=== PATIENT | female | born 1945 | race African-American/Black ===

== ENCOUNTER 2020-06-06 12:47 | Inpatient (IN) | payer OTHER ==
--- OUTSIDE RECORDS SUMMARY | 2020-06-06 12:50 | XMS REPORT | Clinical Summary ---
:1945 Author Organization [facility] Address [address] [place] [address] Care Team Providers Name Role Phone Jona Dooley MD Primary Care Provider Allergies No Known Active Allergies Medications Medication Sig Dispensed Refills Start Date End Date Status clopidogrel (PLAVIX) 75 Take 75 mg by 0 Active mg tablet mouth daily. atorvastatin (LIPITOR) Take 80 mg by 0 Active 80 MG tablet mouth daily. amLODIPine (NORVASC) 5 Take 5 mg by 0 Active mg tablet mouth daily. atenolol (TENORMIN) 25 Take 25 mg by 0 Active MG tablet mouth nightly. ibandronate (BONIVA) 150 Take 150 mg by 0 Active mg tablet mouth every 30 (thirty) days. Take in AM with glass of water prior to food, don't lie down for 30 minutes. aspirin (ECOTRIN) 81 MG Take 81 mg by 0 Active enteric coated tablet mouth daily. Active Problems Problem Noted Date Transient cerebral ischemia 06/05/2017 Carotid bruit 06/05/2017 PAD (peripheral artery disease) 06/05/2017 Atherosclerosis 06/05/2017 Surgical History Surgery Date Site/Laterality Comments CAROTID STENT CARDIAC CATHETERIZATION 07/18/2017 N/A Procedur e: Aortagram abdomen w run off; Surg xochitl: Selvin Nichols MD; Lo cation: [facility] Termite Control Service Representative Invasiv e Location; Service: Cardiov ascular; Laterality: N/A; SPECIAL OFFICER bilateral iliac stents Medical devices from this surgery are in t Implants section. CARDIAC CATHETERIZATION 07/18/2017 N/A Procedur e: SPECIAL OFFICER iliac artery; Surgeon: Selvin Nichols MD; Location: [facility] Termite Control Service Representative Invasive Locatio n; Service: Cardiovascular; Laterality: N/A; Medical devices from this surgery are in t he Implants section. CARDIAC CATHETERIZATION 07/18/2017 N/A Procedur e: Cv invasive peripheral vascu lar procedure; Surg xochitl: Selvin Nichols MD; Lo cation: [facility] Termite Control Service Representative Invasiv e Location; Service: Cardiov ascular; Laterality: N/A; Medical devices from this surgery are in t he Implants section. CARDIAC CATHETERIZATION 08/22/2017 N/A Procedur e: Cv Transcatheter Stent Placement W Angio Same Initial Vessel; Surgeon: Selvin Nichols MD; Location: [facility] Ca th Lab Invasive Locatio n; Service: Cardiovascular; Laterality: N/A; Left Renal Artery SPECIAL OFFICER and Stent Medical devices from this surgery are in t he Implants section. CV INVASIVE PERIPHERAL VASCULAR 08/22/2017 N/A Procedure: Left SFA, SPECIAL OFFICER; PROCEDURE Surgeon: Selvin Nichols MD; Location: [facility] C ath Lab Invasive Locatio n; Service: Cardiovascular; Laterality: N/A; Medical devices from this surgery are in t he Implants section. CARDIAC CATHETERIZATION 08/22/2017 N/A Procedur e: Cv arteriogram abdominal aorta; Surgeon: Selvin Nichols MD; Location: [facility] Ca Lab Invasive Locatio n; Service: Cardiovascular; Laterality: N/A; Medical devices from this surgery are in t he Implants section. Medical History Medical History Date Comments CVA (cerebral vascular accident) (HCC) Carotid artery occlusion Hypertension Family History Medical History Relation Name Comments Diabetes Mother Hypertension Mother Lupus Sister Relation Name Status Comments Father Mother Sister Social History Tobacco Use Types Packs/Day Years Used Date Current Every Day Smoker Cigarettes 1 Sta rted: 08/21/2017 Smokeless Tobacco: Never Used Alcohol Use Drinks/Week oz/Week Comments No Sex Assigned at Date Recorded Not on file Obstetrics History Grav Para Term Pre Abrt (TAB) (SAB) (Ect) Mult Lvng Comments 2 2 Date Outcome GA Total Labor/2nd/3rd Weight Sex Delivery Anes PTL Elda A 1 A5 Name Clin Labor Para Para Last Filed Vital Signs Not on file Plan of Treatment Health Maintenance Due Date Last Done Comments COVID-19 VACCINE (1 of 2) 1962 HEPATITIS C SCREENING 1964 BREAST CANCER SCREENING 1996 COLONOSCOPY SCREENING 1996 SHINGLES VACCINES (#1) 1996 65+ PNEUMOCOCCAL VACCINE (1 of 1 - PPSV23) 2011 INFLUENZA VACCINE 11/29/2019 Implants Implanted Type Area Mold Unloader Device Shelf Model / Identifier Expiration Serial / Date Lot Catheter Flight Kitchen Manager [place] 5fr 75cm 6x40mm 0.035in H-Pres - [id number] Cardiovascular N/A: [employer] PERIPHERAL [id number] / Implanted: 07/18/2017 at [facility] (Quantity not on file) Imp lants N/A INTERVENTION / VASCULAR HEATHER Catheter Flight Kitchen Manager [place] 5fr 75cm 6x40mm 0.035in H-Pres - [id number] Cardiovascular N/A: [employer] PERIPHERAL [id number] / Implanted: 07/18/2017 at [facility] (Quantity not on file) Imp lants N/A INTERVENTION / VASCULAR HEATHER Stent System 5.0 X 15mm Resolute [employer] Coronary - [id number] Coronary Stents N/A: [facility] [facility] - 03/05/2019 [id number] / Implanted: Qty: 1 on 08/22/2017 by Selvin Nichols MD at [facility] HO SPITAL N/A [facility]ASCULAR / [facility] Bili Plmz Gen Bln-Xpndbl Unmntd 39x8mm - [id number] Peripheral or N/A: CORDIS ZORA 10/28/2019 [id number] / Implanted: 07/18/2017 at [facility] (Quantity not on file) Toño iary Stents N/A ENDOVASCULAR / [id number] Stent Trnpt Bili Plmz Gen Bln-Xpndbl Unmntd 39x8mm - [id number] Peripheral or N/A: CORDIS ZORA 08/28/2019 [id number] / Implanted: 07/18/2017 at [facility] (Quantity not on file) Toño iary Stents N/A ENDOVASCULAR / [id number] System Clsr Sut Meditd 6fr Perclose Proglide - [id number] Surgic al N/A: TAMEZ VASCULAR 05/30/2019 [id number] / Implanted: 08/22/2017 at [facility] (Quantity not on file) Imp lants; N/A DEVICES / Expanders; [id number] Extenders; Surgical Wires Results Not on fileafter 06/06/2019 Insurance Payer Benefit Plan / Subscriber ID Effective Dates Phone Addre ss Type Group MEDICARE MEDICARE PART A [id number] 2011-Present [place], [place] Medicare AND B COLONIAL COLONIAL EVELYN [id number] 2012-Present Commercial Advance Directives For more information, please contact: [phone] Type Date Recorded 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
--- NOTE | 2020-06-06 13:57 | RAD REPORT ---
EXAM DESCRIPTION: RAD - Chest Single View - 06/06/2020 1:48 pm CLINICAL HISTORY: DYSPNEA Chest pain. COMPARISON: Chest Pa And Lat (2 Views) dated 05/16/2017; CHEST PA AND LAT 2 VIEW dated 08/11/2010; [facility] SINGLE VIEW dated 11/29/2008; CHEST SINGLE VIEW dated 08/28/2008 FINDINGS: Portable technique limits examination quality. Moderate pulmonary edema is seen with bilateral pleural effusions. The heart is moderately enlarged i n size. No displaced fractures.Aortic atherosclerosis. IMPRESSION: Moderate CHF versus volume overload pattern.
[2020-06-06] MEDS ORDERED: FUROSEMIDE 40 MG/4 ML VIAL ONE ×2 (14:12→15:31)
[2020-06-06 14:31] LABS: Absolute Lymphocytes (CBC) 0.7 K/uL (0.7-4.9); Basophils % 0.6 % (0-1.3); Hematocrit 51.9 % (36.0-45.0); Lymphocytes % 14.5 % (15.3-44.8); MPV 10.1 fL (7.6-11.3); RBC Red Blood Cell Count 5.24 M/uL (3.86-4.86)
[2020-06-06 14:32] LABS: Protime INR 1.18
[2020-06-06 14:50] LABS: Albumin 3.3 g/dL (3.4-5.0); Bilirubin Direct 0.3 mg/dL (0-0.2); Bilirubin Total 0.9 mg/dL (0.2-1.0); Magnesium 2.3 mg/dL (1.8-2.4); Potassium 4.6 mmol/L (3.5-5.1); Protein, Total 7.8 g/dL (6.4-8.2); Troponin (Emerg Dept Use Only) 0.02 ng/mL (0.0-0.045)
--- NOTE | 2020-06-06 15:08 | EDPHYS ---
Physician Documentation [facility] Name: Angela Ortez Age: 75 yrs Sex: Female : 1945 Arrival Date: 06/06/2020 Time: 12:50 Bed 4 Private MD: Jesse Dooley C ED Physician Yaw Palmer HPI: 06/06 13:15 This 75 yrs old Black Female presents to ER via Wheelchair with complaints of Leg rn Swelling, Shortness Of Breath. 13:15 The patient has shortness of breath at rest, with light activity. Onset: The rn symptoms/episode began/occurred 2 week(s) ago. Duration: The symptoms are continuous. The patient's shortness of breath is aggravated by supine position, talking, walking. Severity of symptoms: At their worst the symptoms were moderate in the emergency department the symptoms are unchanged. The patient has not experienced similar symptoms in the past. The patient has not recently seen a physician. Reports 1-2 weeks of increased lower ext swelling and sob. SOB worse with minimal exertion and when supine. no fever. + mild cough with white sputum. No known liver or kidney problems. + hx of CAD with 2 stents, no known CHF.. Historical: - Allergies: 13:04 No Known Allergies; iw - Home Meds: 13:04 atorvastatin 80 mg oral tab 1 tab once daily [Active]; atenolol 25 mg Oral tab 1 tab iw once daily [Active]; amlodipine 5 mg tab 1 tab once daily [Active]; clopidogrel 75 mg oral tab 1 tab once daily [Active]; - PMHx: 13:04 CVA; iw - PSHx: 13:04 Heart stents; iw - Immunization history:: Adult Immunizations up to date. - Family history:: not pertinent. - Social history:: Smoking status: unknown. - Hospitalizations: : No recent hospitalization is reported. ROS: 13:15 Constitutional: Negative for fever, chills, and weight loss, Eyes: Negative for injury, rn pain, redness, and discharge, Neck: Negative for injury, pain, and swelling, Cardiovascular: Negative for chest pain, palpitations Respiratory: Negative for wheezing, and pleuritic chest pain, Abdomen/GI: Negative for abdominal pain, nausea, vomiting, diarrhea, and constipation, Back: Negative for injury and pain, MS/Extremity: Negative for injury and deformity, Skin: Negative for injury, rash, and discoloration, Neuro: Negative for headache, numbness, tingling, and seizure. Exam: 13:15 Constitutional: Thin female, frail Head/Face: Normocephalic, atraumatic. ornamenter hand: Regular rate and rhythm. No pulse deficits. Respiratory: + mild tachypnea Abdomen/GI: soft, non-tender, no fluid wave Skin: Warm, dry MS/ Extremity: Pulses equal, no cyanosis. Neurovascular intact. Full, normal range of motion. Equal circumference. 3+ pitting edema bilateral lower ext past knees. Neuro: Awake and alert, GCS 15 Vital Signs: 12:57 BP 135 / 75; Pulse 86; Resp 16; Temp 98.3; iw 13:57 BP 115 / 85; Pulse 102; Resp 17 S; Pulse Ox 95% on R/A; jd3 15:17 BP 132 / 62; Pulse 100; Resp 20 S; Pulse Ox 96% on 2 lpm NC; jd3 17:00 BP 133 / 69; Pulse 96; Resp 23; jl7 MDM: 13:05 Patient medically screened. rn 15:05 Differential diagnosis: CHF exacerbation, Myocardial Infarction Pneumothorax pulmonary rn edema. Data reviewed: vital signs, nurses notes, lab test result(s), EKG, radiologic studies, plain films, and as a result, I will admit patient. Test interpretation: by ED physician or midlevel provider: plain radiologic studies, CXR shows moderate pulmonary edema. Counseling: I had a detailed discussion with the patient and/or guardian regarding: the historical points, exam findings, and any diagnostic results supporting the discharge/admit diagnosis, lab results, radiology results, the need for further work-up and treatment in the hospital. Response to treatment: the patient's symptoms have mildly improved after treatment, and as a result, I will admit patient. Admission orders: after a detailed discussion of the patient's condition and case, the admit orders are written by me. ED course: Consulted with Dr. Dooley, will admit for CHF. . 06/06 13:14 Order name: Basic Metabolic Panel rn 06/06 13:14 Order name: CBC with Diff rn 06/06 13:14 Order name: LFT's; Complete Time: 15:02 rn 06/06 13:14 Order name: Magnesium; Complete Time: 15:02 rn 06/06 13:14 Order name: NT PRO-BNP; Complete Time: 15:02 rn 06/06 13:14 Order name: PT-INR; Complete Time: 15:02 rn 06/06 13:14 Order name: Troponin (emerg Dept Use Only); Complete Time: 15:02 rn 06/06 13:14 Order name: XRAY Chest (1 view); Complete Time: 14:06 rn 06/06 13:14 Order name: Basic Metabolic Panel; Complete Time: 15:02 EDMS 06/06 13:14 Order name: CBC with Automated Diff EDMS 06/06 13:19 Order name: COVID-19 : Document "Date of Symptom Onset" if Symptomatic. rn 06/06 15:27 Order name: SARS-COV-2 RT PCR EDMS 06/06 13:14 Order name: EKG; Complete Time: 13:14 rn 06/06 13:14 Order name: Cardiac monitoring; Complete Time: 13:17 rn 06/06 13:14 Order name: EKG - Nurse/Tech; Complete Time: 13:17 rn 06/06 13:14 Order name: IV Saline Lock; Complete Time: 14:05 rn 06/06 13:14 Order name: Labs collected and sent; Complete Time: 14:05 rn 06/06 13:14 Order name: O2 Per Protocol; Complete Time: 13:17 rn 06/06 13:14 Order name: O2 Sat Monitoring; Complete Time: 13:17 rn 06/06 13:51 Order name: Garcia; Complete Time: 14:38 rn Administered Medications: 14:38 Drug: Lasix 40 mg Route: IVP; Site: right forearm; jd3 17:08 Follow up: Response: No adverse reaction iw 15:15 Drug: Lasix 40 mg Route: IVP; Site: right forearm; iw 17:09 Follow up: Response: No adverse reaction iw Disposition: 06/06/20 15:07 Hospitalization ordered by Jesse Dooley for Inpatient Admission. Preliminary diagnosis are Pulmonary edema, Congestive Heart Failure, Dyspnea, unspecified. - Bed requested for Telemetry/MedSurg (Inpatient). - Status is Inpatient Admission. jl7 - Condition is Stable. - Problem is new. - Symptoms have improved. Signatures: Dispatcher [employer] EDAdeline Auguste RN RN iw Nieto, Roman, MD MD rn Martinez, Eric em1 Carolina Mitchell RN RN jl7 Hernando Conde RN RN jd3 Corrections: (The following items were deleted from the chart) 14:17 13:19 CORONAVIRUS ordered. EDMS EDMS 16:28 15:07 Hospitalization Ordered by A Soumya HALL for Inpatient Admission. Preliminary em1 diagnosis is Pulmonary edema; Congestive Heart Failure; Dyspnea, unspecified. Bed requested for Telemetry/MedSurg (Inpatient). Status is Inpatient Admission. Condition is Stable. Problem is new. Symptoms have improved. rn 17:22 16:28 06/06/2020 15:07 Hospitalization Ordered by A Soumya HALL for Inpatient Admission. jl7 Preliminary diagnosis is Pulmonary edema; Congestive Heart Failure; Dyspnea, unspecified. Bed requested for Telemetry/MedSurg (Inpatient). Status is Inpatient Admission. Condition is Stable. Problem is new. Symptoms have improved. em1
--- NOTE | 2020-06-06 15:08 | ER ---
Nurse's Notes [facility] Name: Angela Ortez Age: 75 yrs Sex: Female : 1945 Arrival Date: 06/06/2020 Time: 12:50 Bed 4 Private MD: Jesse Dooley C Diagnosis: Pulmonary edema;Congestive Heart Failure;Dyspnea, unspecified Presentation: 06/06 12:57 Chief complaint: Spouse and/or significant other states: kun leg swelling X 10 days, is iw having trouble breathing when sleeping/lying flat, no hx of CHF. Coronavirus screen: At this time, the client does not indicate any symptoms associated with coronavirus-19. Ebola Screen: Patient negative for fever greater than or equal to 101.5 degrees Fahrenheit, and additional compatible Ebola Virus Disease symptoms Patient denies exposure to infectious person. Patient denies travel to an Ebola-affected area in the 21 days before illness onset. No symptoms or risks identified at this time. Initial Sepsis Screen: Does the patient meet any 2 criteria? No. Patient's initial sepsis screen is negative. Does the patient have a suspected source of infection? No. Patient's initial sepsis screen is negative. Risk Assessment: Do you want to hurt yourself or someone else? Patient reports no desire to harm self or others. Onset of symptoms was May 28, 2020. 12:57 Method Of Arrival: Wheelchair iw 12:57 Acuity: JILLIAN 3 iw Triage Assessment: 14:00 Respiratory: Onset: The symptoms/episode began/occurred gradually, the patient has mild jd3 shortness of breath. Historical: - Allergies: 13:04 No Known Allergies; iw - Home Meds: 13:04 atorvastatin 80 mg oral tab 1 tab once daily [Active]; atenolol 25 mg Oral tab 1 tab iw once daily [Active]; amlodipine 5 mg tab 1 tab once daily [Active]; clopidogrel 75 mg oral tab 1 tab once daily [Active]; - PMHx: 13:04 CVA; iw - PSHx: 13:04 Heart stents; iw - Immunization history:: Adult Immunizations up to date. - Family history:: not pertinent. - Social history:: Smoking status: unknown. - Hospitalizations: : No recent hospitalization is reported. Screenin:00 Abuse screen: Denies threats or abuse. Nutritional screening: No deficits noted. jd3 Tuberculosis screening: No symptoms or risk factors identified. Fall Risk Ambulatory Aid- Crutches/Cane/Walker (15 pts). Gait- Weak (10 pts.). Mental Status- Oriented to own ability (0 pts). Total Brady Fall Scale indicates Low Risk Score (25-44 pts). Fall prevention measures have been instituted. Side Rails Up X 2 Placed close to Nursing Station Frequent Obs/Assesments occuring Family Present and informed to notify staff if they need to leave bedside. Assessment: 13:15 General: Appears in no apparent distress. uncomfortable, Behavior is calm, cooperative, jd3 appropriate for age. Pain: Complains of pain in chest Quality of pain is described as aching. Neuro: Level of Consciousness is awake, alert, obeys commands, Oriented to person, place, time, situation. Cardiovascular: Heart tones S1 S2 present Capillary refill < 3 seconds Patient's skin is warm and dry. Rhythm is sinus tachycardia. Respiratory: Reports shortness of breath at rest cough that is persistent Airway is patent Respiratory effort is even, unlabored, Respiratory pattern is regular, symmetrical, Breath sounds are diminished bilaterally. GI: No signs and/or symptoms were reported involving the gastrointestinal system. : No signs and/or symptoms were reported regarding the genitourinary system. EENT: No signs and/or symptoms were reported regarding the EENT system. Derm: Skin is intact, Skin is dry, Skin is normal, Skin temperature is warm. Musculoskeletal: Circulation, motion, and sensation intact. Range of motion: intact in all extremities, Swelling present in right leg and left leg. 14:00 Reassessment: No changes from previously documented assessment. Patient and/or family jd3 updated on plan of care and expected duration. Pain level reassessed. Patient is alert, oriented x 3, equal unlabored respirations, skin warm/dry/pink. 15:18 Reassessment: Patient and/or family updated on plan of care and expected duration. Pain jd3 level reassessed. Patient is alert, oriented x 3, equal unlabored respirations, skin warm/dry/pink. 16:20 Reassessment: Patient appears in no apparent distress at this time. No changes from jl7 previously documented assessment. Patient and/or family updated on plan of care and expected duration. Pain level reassessed. Patient is alert, oriented x 3, equal unlabored respirations, skin warm/dry/pink. Vital Signs: 12:57 BP 135 / 75; Pulse 86; Resp 16; Temp 98.3; iw 13:57 BP 115 / 85; Pulse 102; Resp 17 S; Pulse Ox 95% on R/A; jd3 15:17 BP 132 / 62; Pulse 100; Resp 20 S; Pulse Ox 96% on 2 lpm NC; jd3 17:00 BP 133 / 69; Pulse 96; Resp 23; jl7 ED Course: 12:50 Patient arrived in ED. as 12:55 Jesse Dooley MD is Private Physician. as 12:59 Triage completed. iw 13:05 Yaw Palmer MD is Attending Physician. rn 13:16 Hernando Conde RN is Primary Nurse. jd3 13:49 XRAY Chest (1 view) In Process Unspecified. EDMS 13:57 Arm band placed on. jd3 14:01 Patient has correct armband on for positive identification. Placed in gown. Bed in low jd3 position. Call light in reach. Side rails up X2. Adult w/ patient. cash management coordinator on. Pulse ox on. NIBP on. 14:20 Initial lab(s) drawn, by me, sent to lab. Inserted saline lock: 20 gauge in right jl7 forearm, using aseptic technique. Blood collected. 14:30 Garcia cath inserted, using sterile technique, 14 Fr., by me, balloon inflated, to jl7 gravity drainage, urine specimen collected. returned cloudy urine. Patient tolerated poorly. 15:07 Jesse Dooley MD is Hospitalizing Provider. rn 16:39 No provider procedures requiring assistance completed. Patient admitted, IV remains in iw place. Administered Medications: 14:38 Drug: Lasix 40 mg Route: IVP; Site: right forearm; jd3 17:08 Follow up: Response: No adverse reaction iw 15:15 Drug: Lasix 40 mg Route: IVP; Site: right forearm; iw 17:09 Follow up: Response: No adverse reaction iw Outcome: 15:07 Decision to Hospitalize by Provider. rn 16:39 Admitted to Med/surg Report called to FERMIN Willams iw 16:39 Condition: good 16:39 Discharge instructions given to patient, family, Instructed on the need for admit, Demonstrated understanding of instructions. 17:22 Patient left the ED. jl7 Signatures: Dispatcher [employer] Alison Cheng Irene, RN RN iw Yaw Palmer MD MD rn Leal, Jahala, RN RN jl7 Hernando Conde RN RN jd3 Corrections: (The following items were deleted from the chart) 13:04 12:57 BP 135 / 75; Pulse 86bpm; Resp 16bpm; Pulse Ox 98% RA; Temp 98.3F; iw iw 14:00 13:15 Respiratory: Airway is patent Respiratory effort is even, unlabored, Respiratory jd3 pattern is regular, symmetrical, Breath sounds are diminished bilaterally. jd3 14:00 13:15 Reassessment: No changes from previously documented assessment. Patient and/or jd3 family updated on plan of care and expected duration. Pain level reassessed. Patient is alert, oriented x 3, equal unlabored respirations, skin warm/dry/pink. jd3
[2020-06-06 18:05] VITALS: BMI 22.4
[2020-06-06] MEDS ORDERED: ONDANSETRON 4 MG/2 ML VIAL IV PRN (18:09)
[2020-06-06] MEDS ORDERED: ALBUTEROL 2.5 MG/3 ML NEB SOL NEB PRN (18:09)
[2020-06-06] MEDS ORDERED: IPRATROPIUM BROM 0.5MG/2.5ML NEB PRN (18:09)
[2020-06-06] MEDS: FUROSEMIDE 40 MG/4 ML VIAL IV SCH (19:06)
[2020-06-06 19:40] LABS: Anisocytosis 1+; Blood Morphology Comment NOTED (NOT SEEN); Platelet Estimate ADEQ; Polychromasia SLIGHT
[2020-06-06 22:23] LABS: Arterial Blood Carboxyhemoglob 3.8 % (0-1.5); Blood Gas Oxyhemoglobin 69.4 % (94-97); Blood O2 Saturation 72.8 % (92-98.5)
[2020-06-07 05:52] LABS: Absolute Lymphocytes (CBC) 0.7 K/uL (0.7-4.9); Basophils % 0.4 % (0-1.3); Hematocrit 49.6 % (36.0-45.0); Lymphocytes % 14.8 % (15.3-44.8); MPV 9.6 fL (7.6-11.3); RBC Red Blood Cell Count 4.97 M/uL (3.86-4.86)
[2020-06-07 06:11] LABS: Potassium 4.7 mmol/L (3.5-5.1)
[2020-06-07] MEDS ORDERED: INFLUENZA VACCINE (for 3y+) 0.5 ML DOSE IMVAC ONE (09:00)
[2020-06-07] MEDS ORDERED: PNEUMOCOCCAL VACCINE 0.5 ML IMVAC ONE (09:00)
[2020-06-07] MEDS: ASPIRIN EC 81 MG TAB PO SCH (11:30)
[2020-06-07] MEDS: CLOPIDOGREL 75 MG TABLET PO SCH (11:30)
[2020-06-07] MEDS: FUROSEMIDE 40 MG/4 ML VIAL IV SCH ×2 (11:30→16:03)
[2020-06-07] MEDS: AMLODIPINE 5 MG TAB PO SCH (11:30)
[2020-06-07] MEDS: ENOXAPARIN 40 MG/0.4 ML SQ SCH (11:31)
--- NOTE | 2020-06-07 11:39 | CON ---
Date of Consultation: 06/07/2020 Reason For Consultation: CHF. History Of Present Illness: Ms. Ortez is a 75-year-old woman with history of CVA, CAD, PCI, hypert ension, dyslipidemia, who came in with shortness of breath. She is on CPAP and BiPAP with a pO2 of 4 7, pCO2 of 87, pH of 7.25 respiratory acidosis, CO2 retention. Chest x-ray showed moderate congestive heart failure. BNP was 8332. Echocardiogram is pending. She is on appropriate therapy, somnolent and lethargic, but she is alert and oriented x3, no acute distress other than shortness of breath. Past Medical History: As stated above. Allergies: NONE. Review of Systems: Negative. Social History: Negative. Family History: Noncontributory. Medications: At home include aspirin, Plavix, Lipitor, atenolol, Norvasc. Physical Examination: Vital Signs: Stable, afebrile. HEENT: Negative. Neck: Supple with no bruit. Chest: Reveals rales and expiratory wheezing bilaterally at the bases. Cardiac: Revealed tachycardia with sinus tach. No murmurs, gallops, or rubs. Abdomen: Benign. Extremities: Revealed no clubbing, cyanosis. 1+ edema. Diagnostic Data: As stated earlier. Impression And Plan: 1. combination of chronic obstructive pulmonary disease exacerbation as well as congestive heart failure exacerbation . Echocardiogram is pending CO2 retention. She is on BiPAP and CPAP. We will see what the echo shows before making further therapy. She is on appropr iate medical therapy for now. 2.Coronary artery disease, status post percutaneous coronary intervention. She is on aspirin and Pl avix and beta-valentin. We may have to discontinue her beta-valentin later as her lungs appeared to be an issue. She also had hypertension and dyslipidemia, both of them are controlled fairly well on No rvasc and Lipitor. I will continue to follow along with Dr. Dooley. TOBIN/LOLA Voice ID: [id number] Report ID: [id number]
--- NOTE | 2020-06-07 11:48 | P.CNS ---
Date of Consult: 06/07/20 Reason for Consult: Respiratory failure Chief Complaint: Respiratory failure History of Present Illness: Patient is 75 years of age presented to the emergency room with lower extremity edema shortness of breath symptoms began about 2 weeks became progressively worse and appeared in the emergency room was found to be hypoxic hypercapnic history of coronary artery disease with stents no prior history of CHF is currently on a BiPAP appears to have bilateral pleural effusion possible pulmonary edema Allergies No Known Allergies Allergy (Unverified 06/06/20 17:25) Home Medications: Amlodipine [Norvasc] 5 mg PO DAILY 06/06/20 Aspirin [Aspirin EC 81 MG] 81 mg PO DAILY 06/06/20 Atenolol [Tenormin] 25 mg PO BEDTIME 06/06/20 Atorvastatin Calcium [Lipitor] 80 mg PO BEDTIME 06/06/20 Clopidogrel Bisulfate [Plavix] 75 mg PO DAILY 06/06/20 - Past Medical/Surgical History Diabetic: No -: stroke -: cardiac stents -: cardiac stents - Social History Smoking Status: Unknown if ever smoked Alcohol use: No CD- Drugs: No Caffeine use: Yes Place of Residence: Home Review of Systems is unable to be obtained Physical Examination Temp Pulse Resp BP Pulse Ox 97.0 F 80 14 108/58 L 100 06/07/20 08:00 06/07/20 11:30 06/07/20 08:00 06/07/20 11:30 06/07/20 08:00 General: Unresponsive Respiratory: Clear to auscultation bilaterally, Crackles/rales, Expiratory wheezes Cardiovascular: Normal S1 S2, Edema Gastrointestinal: Soft and benign Laboratory Data (last 24 hrs) 06/06/20 14:07: PT 13.6 H, INR 1.18 06/06/20 14:07: WBC 5.10, Hgb 16.4 H, Hct 51.9 H, Plt Count 157 06/06/20 14:07: Sodium 144, Potassium 4.6, BUN 27 H, Creatinine 1.05, Glucose 113 H, Magnesium 2.3, Total Bilirubin 0.9, AST 19, ALT 24, Alkaline Phosphatase 94 - Problems (1) Respiratory failure Current Visit: Yes Status: Acute Plan: Patient is 75 years of age with a history of coronary artery disease stents placement admitted with hypoxemia hypercapnia respiratory failure BNP is over 10,000 labs reviewed CBC unremarkable chest x-ray shows cardiomegaly 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
[2020-06-07] MEDS ORDERED: IPRATROPIUM BROM 0.5MG/2.5ML NEB PRN (15:00)
[2020-06-07] MEDS ORDERED: ALBUTEROL 2.5 MG/3 ML NEB SOL NEB PRN (15:00)
[2020-06-07] MEDS: ATORVASTATIN 80 MG TAB PO SCH (21:46)
[2020-06-07] MEDS: ENSURE ENLIVE 237 ML CAN PO SCH (21:47)
[2020-06-07] MEDS: atenoloL 25 MG TAB PO SCH (23:11)
[2020-06-08 08:04] LABS: Potassium 4.9 mmol/L (3.5-5.1)
--- NOTE | 2020-06-08 08:52 | ECHO ---
HEIGHT: 5 ft 7 in WEIGHT: 148 lb 12.8 oz DATE OF STUDY: 06/07/[address]: Yaw Palmer JR, MD 2-DIMENSIONAL: YES M.MODE: YES DOPPLER: YES COLOR FLOW: YES TDS: YES PORTABLE: DEFINITY: BUBBLE STUDY: DIAGNOSIS: CARDIAC FUNCTION CARDIAC HISTORY: CATHERIZATION: SURGERY: PROSTHETIC VALVE: PACEMAKER: MEASUREMENTS (cm) DIASTOLIC (NORMALS) SYSTOLIC (NORMALS) IVSd 1.0 (0.6-1.2) LA Diam 3.4 (1.9-4.0) LVEF 57% LVIDd 3.1 (3.5-5.7) LVIDs 2.2 (2.0-3.5) %FS 29% LVPWd 0.9 (0.6-1.2) Ao Diam 2.6 (2.0-3.7) 2 DIMENSIONAL ASSESSMENT: RIGHT ATRIUM: SEVERELY DILATED LEFT ATRIUM: NORMAL RIGHT VENTRICLE: DILATED WITH DEPRESSED FUNCTION LEFT VENTRICLE: NORMAL TRICUSPID VALVE: MODERATE TRICUSPID REGURGITATION MITRAL VALVE: MILD MITRAL REGURGITATION PULMONIC VALVE: MODERATE PULMONIC INSUFFIENCY AORTIC VALVE: MILD AORTIC INSUFFIENCY PERICARDIAL EFFUSION: NONE AORTIC ROOT: NORMAL LEFT VENTRICULAR WALL MOTION: NORAML DOPPLER/COLOR FLOW: SEE BELOW COMMENTS: NORMAL LEFT VENTRICULAR EJECTION FRACTION 55-60% WITH NORMAL WALL MOTION. DILATED RIGHT ATRIUM. DILATED RIGHT VENTRICLE WITH MILDLY DEPRESSED RIGHT VENTRICULAR FUNCTION. MODERATE TO SEVERE TRICUSPID REGURGITATION. SEVERE PULMONARY HYPERTENSION WITH RIGHT VENTRICULAR SYSTOLIC PRESSURE >60 mmHg. TECHNOLOGIST: REYES RITCHIE
[2020-06-08] MEDS ORDERED: CEFTRIAXONE 1 GM/NS 50 ML 1 GM/50 ML BAG IV SCH (09:00)
[2020-06-08] MEDS ORDERED: FUROSEMIDE 40 MG/4 ML VIAL IV SCH (09:00)
[2020-06-08] MEDS: CLOPIDOGREL 75 MG TABLET PO SCH (09:31)
[2020-06-08] MEDS: ASPIRIN EC 81 MG TAB PO SCH (09:31)
[2020-06-08] MEDS: AMLODIPINE 5 MG TAB PO SCH (09:32)
[2020-06-08] MEDS: CEFTRIAXONE/SWI 1gm 1 GM/10 ML SYR IV SCH ×2 (09:33→21:12)
[2020-06-08] MEDS: acetaZOLAMIDE 250 MG TAB PO SCH (09:33)
[2020-06-08] MEDS: ENOXAPARIN 40 MG/0.4 ML SQ SCH (09:33)
[2020-06-08] MEDS: ENSURE ENLIVE 237 ML CAN PO SCH ×2 (09:34→21:13)
[2020-06-08] MEDS: DULERA 200/5 (MOMETASONE/FORMOTEROL) INHALER IH SCH ×2 (09:57→21:12)
--- NOTE | 2020-06-08 14:00 | RAD REPORT ---
EXAM DESCRIPTION: US - Extrem Venous W Compress Toño - 06/08/2020 1:53 pm CLINICAL HISTORY: leg pain, rule out DVT COMPARISON: None. TECHNIQUE: Real-time sonographic evaluation of the bilateral lower extremity common femoral, superfi cial femoral, popliteal and posterior tibial veins was performed. FINDINGS: Normal compressibility, flow augmentation, phasic flow and spontaneous flow are identified in the left and right lower extremity common femoral, superficial femoral, popliteal and posterior t ibial veins. No intraluminal filling defects seen. Edema is seen in the subcutaneous fatty tissues. N o mass or focal fluid in the soft tissues. IMPRESSION: No DVT in either lower extremity.
[2020-06-08] MEDS: atenoloL 25 MG TAB PO SCH (21:00)
[2020-06-08] MEDS: ATORVASTATIN 80 MG TAB PO SCH (21:12)
--- NOTE | 2020-06-09 05:21 | HP ---
Date of Admission: 06/07/2020 Chief Complaint: Leg swelling and shortness of breath. History Of Present Illness: This is a 75-year-old female patient with underlying history of COPD, who continues to smoke and multiple other comorbidities, came into emergency room with 2 weeks history of shortness of breath and leg swelling. After she was evaluated in the emergency room, she was admitted to the hospital. Last night, the patient was started on BiPAP because of her acute respiratory failure and this decision was made after doing blood gas, which showed low oxygen and elevated carbon dioxide. This morning when I saw her, she was on BiPAP, lying in bed, not in any distress. Allergies: NO KNOWN ALLERGIES. Medications: According to office records, she takes atorvastatin 80 mg daily in the evening, Fosamax 35 mg once a week, amlodipine 5 mg p.o. daily, aspirin 81 mg p.o. daily, atenolol 25 mg p.o. daily at bedtime, Caltrate plus D 1 tablet by mouth 2 times a day, and Clopidogrel 75 mg p.o. daily. Past Medical History: Significant for stroke, COPD, hypertension, hyperlipidemia, renal artery stenosis, peripheral vascular disease, gallstones, osteoarthritis at multiple sites, insomnia, and osteopenia. Past Surgical History: Significant for bilateral common iliac artery angioplasty and stent placement August 22, 2017. Family History: Significant for mother with diabetes and hypertension, and sister with diabetes. Social History: Positive for smoking. Use of alcohol negative. Review of Systems: Cardiovascular: As mentioned above. Respiratory: As mentioned above. All other systems reviewed and negative. Physical Examination: Vital Signs: This morning temperature 97, pulse 82, respiratory rate 22, blood pressure 113/51, oxygen saturation 100% on BiPAP. Height 5 feet 7 inches, weight 139 pounds. General: The patient appears weaker than normal, not in any distress, on BiPAP. HEENT: Head atraumatic, normocephalic. Conjunctivae nonerythematous. Sclerae white. Mouth, no thrush or edema noted. Ears/Nose, no mass, lesion, discharge noted. Neck: Supple. No JVD, lymph nodes, bruit, thyromegaly noted. Lungs: Bilateral good equal air entry. Clear to auscultation. No rhonchi. No rales. Heart: Normal heart sounds, no murmur or gallop. Abdomen: Soft, bowel sounds normal. No guarding, rigidity, tenderness, mass, hepatosplenomegaly, distention, or bruit noted. Extremities: Significant edema grade 3 involving entire both lower extremities, all the way from her groin to her feet. Skin: No rash, ulcer, cellulitis. Lymphatics: No lymph node enlargement in neck, supraclavicular, infraclavicular region. Neuro: No focal neurological deficit. Chest: Unremarkable. External Genitalia: Deferred. Rectal: Deferred. Laboratory Data: Her arterial blood gas; pH 7.25, pCO2 86.9, pO2 47.2, oxygen saturation 72.8% on 37.5% FiO2. Her initial white count 5.1, hemoglobin 16.4, platelets 157. This morning; white count 4.60, hemoglobin 15.2. Initial sodium 144, potassium 4.6, chloride 106, bicarb 36, BUN 27, creatinine 1.05, glucose 113. Liver function tests unremarkable. Albumin 3.3. Troponin 0.02. This morning; sodium 148, potassium 4.7, chloride 107, bicarb 38, BUN 25, creatinine 1.12, glucose 85. Her proBNP yesterday was 102,062. This morning it is 8332. Impression: 1. Acute respiratory failure with hypoxia and hypercapnia. 2. Acute exacerbation of chronic obstructive pulmonary disease. 3. Congestive heart failure. 4. Hypertension. 5. Hyperlipidemia. 6. Peripheral vascular disease. 7. Renal artery stenosis. 8. Osteoarthritis, multiple sites. 9. Osteopenia. Plan: Admit the patient to hospital for further evaluation and management of this problem. The patient is appropriate for inpatient and is expected to spend 2 midnights in hospital. We will go ahead and consult Cardiology and Pulmonary Service. Continue current BiPAP support and oxygen replacement therapy. Continue home medications per order. DVT prophylaxis will be given using Lovenox. We will get echo with Doppler. Give diuretic therapy. Monitor electrolytes and renal function. So far the patient has not experienced any symptoms related to her COPD, but now she will need to have definitely maintenance therapy started with appropriate inhaler. Details were discussed with financial sales representative and I will see her tomorrow for followup. ANGELICA/MODL Voice ID: [id number] HOLDEN
--- NOTE | 2020-06-09 05:32 | PN ---
Date of Progress Note: 06/08/2020 Subjective: Angela Ortez admitted to Dr. Dooley and being followed for shortness of breath. 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 She is now on nasal cannula with O2 satura tion 94%. She has a past medical history of CVA, coronary artery disease status post stent. She has a history of hypertension, dyslipidemia, came in with dyspnea on exertion. Echocardiogram yesterday revealed a normal ejection fraction with severe pulmonary hypertension. I think her main issue is C OPD rather than congestive heart failure. She is on appropriate therapy instituted by Dr. Dooley. I w ill be available for questions if the need arises. I will sign off her case for now. Continue prese nt regimen. I will discuss the case further with Dr. Dooley. TOBIN/LOLA Voice ID: [id number] Report ID: [id number]
[2020-06-09 05:46] LABS: Absolute Lymphocytes (CBC) 0.5 K/uL (0.7-4.9); Basophils % 0.2 % (0-1.3); Hematocrit 42.7 % (36.0-45.0); MPV 9.7 fL (7.6-11.3); RBC Red Blood Cell Count 4.38 M/uL (3.86-4.86)
[2020-06-09 05:55] LABS: Magnesium 2.4 mg/dL (1.8-2.4); Potassium 4.5 mmol/L (3.5-5.1)
[2020-06-09] MEDS: acetaZOLAMIDE 250 MG TAB PO SCH (09:08)
[2020-06-09] MEDS: ASPIRIN EC 81 MG TAB PO SCH (09:09)
[2020-06-09] MEDS: DULERA 200/5 (MOMETASONE/FORMOTEROL) INHALER IH SCH (09:09)
[2020-06-09] MEDS: CLOPIDOGREL 75 MG TABLET PO SCH (09:09)
[2020-06-09] MEDS: CEFTRIAXONE/SWI 1gm 1 GM/10 ML SYR IV SCH ×2 (09:09→20:45)
[2020-06-09] MEDS: ENOXAPARIN 40 MG/0.4 ML SQ SCH (09:09)
[2020-06-09] MEDS: ENSURE ENLIVE 237 ML CAN PO SCH ×2 (09:10→20:46)
--- NOTE | 2020-06-09 09:24 | PN ---
Date of Progress Note: 06/08/2020 Subjective: The patient was seen for followup this morning. She was on nasal cannula oxygen. Lying in bed, not in distress. No new complaints or problems reported by her, except complaining of right leg pain. Objective: Vital Signs: Reviewed. HEENT: Unremarkable. Lungs: Clear to auscultation. Heart: Sounds normal. Abdomen: Soft. Bowel sounds normal. No guarding, rigidity, tenderness, or distention. Extremities: Bilateral leg edema present, unchanged from yesterday. The patient is having tendernes s over the right calf region. With gentle touch, she is complaining of pain. Skin: Slightly warm to touch, also in this region. Impression: 1.Acute respiratory failure with hypoxia and hypercapnia. 2.Congestive heart failure. 3.Hypertension. 4.Peripheral vascular disease. 5.Cellulitis, right leg. Plan: Echocardiogram result is pending. The patient's bicarb was elevated this morning on the blood work, so we will discontinue her Lasix and start her on acetazolamide. IV antibiotic, ceftriaxone w as started. We will get venous Doppler of lower extremity to rule out DVT and continue Lovenox meanw hile. We will see her tomorrow for followup. ANGELICA/MODL Voice ID: [id number] Report ID: [id number]
--- NOTE | 2020-06-09 11:54 | P.PN ---
Subjective Date of Service: 06/09/20 Chief Complaint: Respiratory failure Subjective: Improving (Patient is doing much better she is more alert responsive cooperative heavy smoker) Review of Systems General: Weakness Respiratory: Shortness of Breath Physical Examination - Vital Signs Temperature: 97.2 F Blood Pressure: 107/58 Pulse: 64 Respirations: 16 Pulse Ox (%): 97 - Physical Exam General: Alert, Oriented x3 Respiratory: Expiratory wheezes Cardiovascular: No edema, Normal S1 S2 Assessment & Plan - Problems (Diagnosis) (1) Respiratory failure Current Visit: Yes Status: Acute Plan: Patient admitted with respiratory failure she is doing much better patient was hypoxic hypercapnic is a heavy smoker patient's bicarbonate is significant elevated optimize bronchodilator therapy steroids Diamox repeat arterial blood gases patient is off BiPAP most likely patient has severe cor pulmonale from underlying severe COPD echocardiogram shows pulmonary hypertension tricuspid regurgitation pulmonary artery pressure is over 60 was likely due to her underlying severe obstructive airways disease optimize bronchodilator therapy of also added a some steroid renal function is normal CT pulmonary angiogram Qualifiers: Chronicity: unspecified
[2020-06-09] MEDS: METHYLPREDNISOLONE 125 MG INJ IV SCH ×2 (12:27→20:45)
[2020-06-09] MEDS: ARFORMOTEROL TARTRATE 15 MCG/2 ML VIAL.NEB NEB SCH ×2 (13:00→20:15)
--- NOTE | 2020-06-09 13:22 | RAD REPORT ---
EXAM DESCRIPTION: CT - Chest For Pe Angio - 06/09/2020 1:09 pm CLINICAL HISTORY: sob COMPARISON: June 06, 2020 chest x-ray TECHNIQUE: Dynamically enhanced axial 3 mm thick images of the chest were obtained during administra tion of <100> mL Isovue 370 IV contrast. Coronal and oblique reconstruction images were generated and reviewed. Exam utilizes a protocol for optimal evaluation of pulmonary arterial tree. Maximum intensity projections 3D imaging was utilized All CT scans are performed using dose optimization technique as appropriate and may include automated exposure control or mA/KV adjustment according to patient size. FINDINGS: A pulmonary embolus is not seen. A thoracic aortic aneurysm is not noted. Moderate bilateral pleural effusions with bibasilar atelectasis. A pericardial effusion is not seen. Mild bilateral pulmonary opacities. Cardiomegaly. IVC is distended. Prominent vascular calcifications IMPRESSION: Negative for a pulmonary embolism. CHF
[2020-06-09] MEDS: IPRATROPIUM BROM 0.5MG/2.5ML NEB SCH ×2 (14:30→20:15)
[2020-06-09 14:58] LABS: Arterial Blood Carboxyhemoglob 2.2 % (0-1.5); Blood Gas Oxyhemoglobin 90.4 % (94-97); Blood O2 Saturation 93.6 % (92-98.5)
--- NOTE | 2020-06-09 20:16 | RAD REPORT ---
EXAM DESCRIPTION: RAD - Lumbar Spine 3 Views - 06/09/2020 8:09 pm CLINICAL HISTORY: Back pain FINDINGS: The alignment of the lumbar spine is satisfactory. No fracture or dislocation is seen. Bones are osteoporotic. Mild spondylosis is present.
[2020-06-09] MEDS: ATORVASTATIN 80 MG TAB PO SCH (20:45)
[2020-06-09] MEDS: atenoloL 25 MG TAB PO SCH (20:46)
--- NOTE | 2020-06-09 20:53 | RAD REPORT ---
EXAM DESCRIPTION: RAD - Pelvis - 06/09/2020 8:09 pm CLINICAL HISTORY: Pelvic pain status post injury FINDINGS: No fracture or dislocation is seen. The bones are osteoporotic. If the patient continues to have symptoms to suggest an occult fracture then either MRI or CT would b e recommended
--- NOTE | 2020-06-09 20:54 | RAD REPORT ---
EXAM DESCRIPTION: RAD - Hip Left 2 View - 06/09/2020 8:09 pm CLINICAL HISTORY: Left hip pain status post injury FINDINGS: No fracture or dislocation is seen. The bones are osteoporotic. If the patient continues to have symptoms to suggest an occult fracture then either MRI or CT would b e recommended
--- NOTE | 2020-06-09 20:54 | RAD REPORT ---
EXAM DESCRIPTION: RAD - Hip Right 2 View - 06/09/2020 8:09 pm CLINICAL HISTORY: Right hip pain FINDINGS: No fracture or dislocation is seen. The bones are osteoporotic. If the patient continues to have symptoms to suggest an occult fracture then either MRI or CT would b e recommended
[2020-06-10] MEDS: IPRATROPIUM BROM 0.5MG/2.5ML NEB SCH ×4 (02:08→19:30)
--- NOTE | 2020-06-10 06:31 | PN ---
Date of Progress Note: 06/09/2020 Subjective: The patient was seen for followup in the morning. No new complaints or problems reporte d by patient. Lying in bed, on BiPAP. Denies any new complaints. Objective: Vital Signs: Reviewed. HEENT: Unremarkable. Lungs: Clear to auscultation. Heart: Sounds normal. Abdomen: Soft. Bowel sounds normal. No guarding, rigidity, tenderness, or distention. Extremities: Bilateral leg edema present, but better today than yesterday. Laboratory Data: White count 5.80, hemoglobin 13.8, and platelet count of 120. Sodium 144, potassiu m 4.5, chloride 101, bicarb 44, BUN 29, creatinine 1.05, glucose 86. Echocardiogram shows ejection f raction 57%, shows moderate to severe tricuspid regurgitation, severe pulmonary hypertension, dilated right ventricle with depressed right ventricular function and dilated right atrium. Impression: 1.Acute respiratory failure with hypoxia and hypercapnia. 2.Acute exacerbation of chronic obstructive pulmonary disease. 3.Cellulitis, leg. 4.Hypertension. Plan: We will go ahead and discontinue amlodipine considering her blood pressure readings. Continue Lovenox. Continue oxygen nebulizer treatment per order and I will continue to follow with Dr. Jaimee eastman. IV steroid was started and we will continue current IV antibiotics for right leg cellulitis. D VT study of leg was negative for any evidence of deep vein thrombosis. Physical therapy to work with the patient and I will see her tomorrow for followup. Her bicarb is elevated and we will avoid any Lasix type of diuretic at this point at least and consider it once by bicarb has improved and if it is necessary by that time. Meanwhile, we will cont inue acetazolamide. ANGELICA/MODL Voice ID: [id number] Report ID: [id number]
[2020-06-10] MEDS: ARFORMOTEROL TARTRATE 15 MCG/2 ML VIAL.NEB NEB SCH ×2 (08:15→19:30)
--- NOTE | 2020-06-10 08:29 | P.PN ---
Subjective Date of Service: 06/10/20 Chief Complaint: Respiratory failure from cor pulmonale Subjective: Improving (Patient is improving doing better saturation satisfactory still weak) Review of Systems General: Weakness Respiratory: Shortness of Breath Physical Examination - Vital Signs Temperature: 97.5 F Blood Pressure: 128/61 Pulse: 73 Respirations: 20 Pulse Ox (%): 98 - Physical Exam General: Alert, Oriented x3 Respiratory: Clear to auscultation bilaterally, Diminished Cardiovascular: No edema, Normal S1 S2 Assessment & Plan - Problems (Diagnosis) (1) Respiratory failure Current Visit: Yes Status: Acute Plan: Patient admitted with respiratory failure secondary to cor pulmonale she presumably has severe COPD patient has bilateral pleural effusions no evidence of pulmonary embolism severe cor pulmonale bicarbonate is very elevated I have started her on low-dose IV fluids increased Diamox p.o. prednisone may qualify for noninvasive ventilator at home elevated bicarbonate may be a consequence of volume depletion Qualifiers: Chronicity: unspecified
[2020-06-10] MEDS: acetaZOLAMIDE 250 MG TAB PO SCH ×2 (08:51→20:48)
[2020-06-10] MEDS: CLOPIDOGREL 75 MG TABLET PO SCH (08:51)
[2020-06-10] MEDS: ENOXAPARIN 40 MG/0.4 ML SQ SCH (08:52)
[2020-06-10] MEDS: CEFTRIAXONE/SWI 1gm 1 GM/10 ML SYR IV SCH ×2 (08:52→20:48)
[2020-06-10] MEDS: ASPIRIN EC 81 MG TAB PO SCH (08:52)
[2020-06-10] MEDS: NACHLORIDE 0.45% 1,000 ML IV SCH ×2 (08:55→22:42)
[2020-06-10] MEDS: ENSURE ENLIVE 237 ML CAN PO SCH ×2 (09:35→20:50)
[2020-06-10] MEDS: predniSONE 20 MG TAB PO SCH ×2 (09:35→20:52)
[2020-06-10] MEDS: ATORVASTATIN 80 MG TAB PO SCH (20:48)
[2020-06-10] MEDS: atenoloL 25 MG TAB PO SCH (20:48)
[2020-06-11] MEDS: IPRATROPIUM BROM 0.5MG/2.5ML NEB SCH ×2 (01:05→07:30)
[2020-06-11 06:39] LABS: Magnesium 2.7 mg/dL (1.8-2.4); Potassium 5.3 mmol/L (3.5-5.1)
[2020-06-11 06:40] LABS: Absolute Lymphocytes (CBC) 0.4 K/uL (0.7-4.9); Basophils % 0.2 % (0-1.3); Hematocrit 41.8 % (36.0-45.0); Lymphocytes % 5.6 % (15.3-44.8); RBC Red Blood Cell Count 4.29 M/uL (3.86-4.86)
[2020-06-11 07:14] LABS: Blood Morphology Comment NOTED (NOT SEEN); Platelet Estimate DECR; White Blood Cell Scan OK (OK)
[2020-06-11 07:15] LABS: Rouleau NOTED; Target Cells FEW
[2020-06-11] MEDS ORDERED: SOD POLYSTYREN SUL 15 GM/60 ML UCUP PO ONE (07:18)
[2020-06-11] MEDS: ARFORMOTEROL TARTRATE 15 MCG/2 ML VIAL.NEB NEB SCH (07:30)
--- NOTE | 2020-06-11 07:41 | PN ---
Date of Progress Note: 06/10/2020 Subjective: The patient was seen for followup in the morning. No new complaints or problems reporte d by her. Lying in bed, not in distress. Objective: Vital Signs: Reviewed. HEENT: Unremarkable. Lungs: Clear to auscultation. Heart: Sounds normal. Abdomen: Soft. Bowel sounds normal. No guarding, rigidity, tenderness, or distention. Extremities: Bilateral leg edema present but better than before. No tenderness of right leg and it has resolved now with use of antibiotic therapy. Impression: 1.Acute respiratory failure with hypoxia and hypercapnia. 2.Acute exacerbation of chronic obstructive pulmonary disease. 3.Cellulitis, right leg. 4.Hypertension. Plan: We will go ahead and continue current medications. The patient is on IV steroid, nebulizer tr eatment, and we will also continue diuretic therapy which is acetazolamide. We will repeat blood wor k tomorrow. Continue to follow up with java front end web developer. Physical therapy to continue to work with the patient and we will consult inpatient rehab. The patient has significant generalized weakness and d ebility and she will benefit from physical therapy as well as rehab therapy. ANGELICA/MODL Voice ID: [id number] Report ID: [id number]
[2020-06-11] MEDS: predniSONE 20 MG TAB PO SCH (08:37)
[2020-06-11] MEDS: ASPIRIN EC 81 MG TAB PO SCH (08:37)
[2020-06-11] MEDS: CLOPIDOGREL 75 MG TABLET PO SCH (08:37)
[2020-06-11] MEDS: CEFTRIAXONE/SWI 1gm 1 GM/10 ML SYR IV SCH (08:37)
[2020-06-11] MEDS: acetaZOLAMIDE 250 MG TAB PO SCH (08:38)
[2020-06-11] MEDS: ENOXAPARIN 40 MG/0.4 ML SQ SCH (08:38)
[2020-06-11] MEDS: ENSURE ENLIVE 237 ML CAN PO SCH (08:43)
[2020-06-11 12:01] VITALS: BP 121/58; TEMP 97.3
[2020-06-11 12:19] VITALS: O2SAT 92
[2020-06-11] MEDS ORDERED: INFLUENZA VACCINE (for 3y+) 0.5 ML DOSE IMVAC ONE (13:00)
[2020-06-11] MEDS ORDERED: PNEUMOCOCCAL VACCINE 0.5 ML IMVAC ONE (13:00)
--- NOTE | 2020-06-11 13:16 | DS ---
Date of Discharge: 06/11/2020 Disposition: Transferred to inpatient rehab. Physical Examination: HEENT: Unremarkable. Lungs: Clear to auscultation. Heart: Sounds normal. Abdomen: Bowel sounds normal. No guarding, rigidity, tenderness, or distention. Extremities: Bilateral grade 1 pedal edema which is significantly better than what it was before. Laboratory Data: Upon admission on 06/06/2020, white count 5.1, hemoglobin 16.4, platelets 157. Today, white count 6.3, hemoglobin 13.3, platelets 125. Chemistry today, sodium 142, potassium 5.3, chloride 104, bicarb 39, BUN 24, creatinine 0.86, glucose 115. Her troponin less than 0.02. ProBNP 8332, which was on 06/07/2020. Day before yesterday, her bicarb was 44. Discharge Medications And Instructions: See copy of transfer order. The patient to continue all current medications as per current orders when she goes to rehab. Hospital Course: This is a 75-year-old female patient, admitted to the hospital with shortness of breath and leg swelling problem. Please see dictated H and P for more information. After the patient came into emergency room, she was evaluated and admitted to the hospital. Her blood gas was when she came in, pH 7.25, pCO2 86.9, PO2 47, saturation 72.8%. CAT scan of the chest had shown bilateral pleural effusion. No evidence of pulmonary embolism. The patient was started on BiPAP with oxygen replacement therapy. Dr. Thomas from Pulmonary was consulted and Dr. Madsen from Cardiology was consulted. We were concerned about congestive heart failure and acute respiratory failure. The echocardiogram showed normal ejection fraction, but it shows dilated right ventricle, dilated right atrium, severe pulmonary hypertension. DVT study of leg was negative. The patient also had some cellulitis of right leg and was treated with antibiotic ceftriaxone. She was started on IV steroid for acute exacerbation of COPD problem. Overall, her condition has improved. She has significant generalized weakness and debility and she will benefit from inpatient rehab therapy to allow her to achieve her previous level of functioning. Initially, she was given IV Lasix, but once her bicarb went up to 44, we discontinued IV Lasix and started her on acetazolamide and she is tolerating that very well. The patient's leg swelling has improved. She had tenderness over right leg in the calf area, which has improved also with antibiotic therapy. Rehab was consulted and today the patient was accepted to inpatient rehab and she will be transferred in stable condition with current medications and I will continue to follow her up on rehab floor. Final Diagnoses: 1. Acute respiratory failure with hypoxia and hypercapnia. 2. Acute exacerbation of chronic obstructive pulmonary disease. 3. Severe pulmonary hypertension. 4. Cor pulmonale, acute. 5. Right-sided heart failure. 6. Hypertension. 7. Hyperlipidemia. 8. Peripheral vascular disease. 9. Renal artery stenosis. 10. Osteoarthritis, multiple sites. 11. Osteopenia. ANGELICA/MODL Voice ID: [id number] Report ID: [id number] MTDD
== END 2020-06-11 13:34 | DRG 189 ==
LOC: ER 12:47 → ERHOLD 15:09 → 2ND 17:01
PROVIDERS: ADMIT Internal Medicine; ATTEND Internal Medicine
PROC: 5A09557 Assistance with Respiratory Ventilation, Greater than 96 Consecutive Hours, Continuous Positive Airway Pressure (ICD-10-PCS; principal; 2020-06-06)
DX: J96.01 Acute respiratory failure with hypoxia (principal); J44.1 Chronic obstructive pulmonary disease with (acute) exacerbation; L03.115 Cellulitis of right lower limb; J96.02 Acute respiratory failure with hypercapnia; E78.5 Hyperlipidemia, unspecified; I73.9 Peripheral vascular disease, unspecified; M85.80 Other specified disorders of bone density and structure, unspecified site; M19.90 Unspecified osteoarthritis, unspecified site; I70.1 Atherosclerosis of renal artery; I11.0 Hypertensive heart disease with heart failure; I27.20 Pulmonary hypertension, unspecified; I25.10 Atherosclerotic heart disease of native coronary artery without angina pectoris; I50.813 Acute on chronic right heart failure; Z95.5 Presence of coronary angioplasty implant and graft; Z79.899 Other long term (current) drug therapy; Z79.02 Long term (current) use of antithrombotics/antiplatelets; Z86.73 Personal history of transient ischemic attack (TIA), and cerebral infarction without residual deficits; Z79.82 Long term (current) use of aspirin; Z20.822 Contact with and (suspected) exposure to COVID-19; Z23 Encounter for immunization
CPT/HCPCS: 36415; 51702; 71045; 71275; 72100; 72170; 80048; 80076; 82805; 83735; 83880; 84484; 85025; 85610; 90471; 90732; 93005; 93306; 93970; 94640; 94660; 94760; 96374; 97116; 97161; 97530; 99285; J0696; J1650; J1940; J2930; J7512; J7605; J7606; Q2035; Q9967; U0003

== ENCOUNTER 2020-06-11 08:38 | Inpatient (IN) | payer OTHER ==
--- NOTE | 2020-06-11 12:04 | R.PREADM ---
PRE-ADMISSION SCREENING FORM SCREENING DATE AND TIME 06/11/2020 09:10 (BOOSTER STATION OPERATOR) ANTICIPATED REHAB ADMISSION DATE 06/13/2020 REFERRING FACILITY [facility] REFERRAL DATE AND TIME 06/11/2020 09:10 (BOOSTER STATION OPERATOR) REFERRAL ROOM# 203 ACUTE ADMIT DATE 06/11/2020 Previous Rehabilitation(s): No. 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 Michael Ontiveros M.D. MR# [id number] NAME ANGELA ORTEZ ADDRESS [address] [place] [address] PHONE [facility] [id number] DATE OF 1945 AGE 75 SSN# [id number] GENDER female MARITAL STATUS RACE unknown race ADMIT FROM 02 - [facility] PRE-HOSPITAL LIVING SETTING 01 - Home (private home/apt. board/care, assisted living, residential, transitional living) HOME TYPE AND DETAILS Type of home: single family house # of levels in the residence: 1 # of steps within the residence: 0 PRE-HOSPITAL LIVING WITH Family/Relatives FAMILY SUPPORT Yes PRIMARY FAMILY CONTACT NAME RAMONA ORTEZ PRIMARY FAMILY CONTACT PHONE PRIMARY FAMILY CONTACT RELATIONSHIP DAUGHTER IN LAW PHONE PRIMARY FAMILY CONTACT ON ADM.? no IS PRIMARY FAMILY CONTACT AUTH. REP.? no 1ST EMERGENCY CONTACT RAMONA ORTEZ 1ST CONTACT PHONE 1ST CONTACT RELATIONSHIP DAUGHTER IN LAW PHONE 1ST CONTACT ON ADM. no IS 1ST CONTACT AUTH. REP.? no PHONE 2ND CONTACT ON ADM.? no PATIENT EMPLOYMENT STATUS Retired (for age) PATIENT EMPLOYER No Employer PAYOR INFORMATION: 1ST PAYOR NAME MEDICARE 1ST PAYOR PHONE 1ST PAYOR INJURY/ILLNESS DUE TO ACCIDENT? No ANOTHER GREEN PARTY RESPONSIBLE? No PRIMARY REHAB/ACUTE DIAGNOSIS: CHF ONSET DATE 06/06/2020 REHAB IMPAIRMENT CATEGORY (YAAKOV): 14 Cardiac does NOT meet 60% rule PRIMARY DIAGNOSIS-RELATED SURGERIES: N/A SUMMARY OF ACUTE HOSPITALIZATION: Pt. is a 75 yo Right-handed female of unknown race. On 06/06/2020 she was admitted to [facility] with diagnosis CHF. Her impairment category is Cardiac 09 - Cardiac Disorders (09). Pre-morbidly, Pt. was independent/mod-I in Endurance, Communication, Self-Care, and Safety Awareness; and she had good Transfers Control and Social Cognition. Currently, she has deficits of Locomotion, Balance, Transfers Control, and Sphincter Control. Pt. is now referred to [facility] for acute in-patient rehabilitation in order to maximize patient's functional independence in activities of daily living, strength, ROM, and mobi lity. Patient has realistic goal of being discharged at assistance level 7-Ind to reside at Home with Fami ly/Relatives. Angela Ortez is a 75 year- old female that lives at home independently. She lives in a single story home with family help when needed. She has a history of COPD, CVA,CAD,PCI,HTN, Dyslipidemia, and insomnia. She came into the emergency room with 2 weeks history of shortness of breath and leg swelling. After being amitted to the hospital, she was started on bipap because of her acute respiratory failure and after doing blood gas that showed oxygen was elevated catbon dioxide. The patient would most definitely benefit from acute inpatient rehab and has become severely debilitated and unable to live at her prior level of activity at home getting her stronger to be back living at home independently is our goal. It is reasonable and necessary for the patient to come to acute inpatient rehab for approximately 7-10 days in order to return to her prior level of care. She is now being transferred to [facility] Inpatient rehabilitation and is medically stable with relatively stable labs. She is now medically stable but in need of 24 hour nursing, doctor supervision and oversight while receiving active and ongoing intensive (PT, OT therapy a day/15 hours per week and receive care with intensive interdisciplinary approach. COVID-19 screening performed; spoke with patient via phone. Patient denies new onset of fever, cough, difficulty breathing, sore throat, body aches and non-allergy nasal congestion in the past 24 hours. Patient denies travel outside of [place] in the past 14 days. Patient denies any contact with someone who has a confirmed diagnosis of or is under investigation for COVID-19 in the past 14 days. Patient has been tested negative for COVID- 19. PAST MEDICAL HISTORY CVA CAD PCI HTN DYSLIPIDEMIA INSOMNIA OSTEOPENIA OSTEOARTHRITIS AT MULTIPLE SITES GALLSTONES COPD PAST SURGICAL HISTORY: MEDICATION ALLERGIES: No Known Drug Allergies (NKDA) ENVIRONMENTAL ALLERGIES: - Substance Allergies None Known - Other Allergies None Known CODE STATUS: Full code WEIGHT/HEIGHT/BMI: WEIGHT 135 lbs HEIGHT 5' 7" BMI 21.1 DIET: - Diet Type Regular - Diet - Solid Texture Regular - Diet - Liquid Texture Regular - Tube Feed N/A REVIEW OF SYSTEMS: - Gen Alert and awake Lying in bed No apparent distress Oriented to: person, time, and place - Vital Signs Temperature: 98.6 F SBP/DBP: 111/61 Pulse: 61 Resp: 20 Vital signs stable, afebrile - CVS RRR VITAL SIGNS Temperature: 98.6 F SBP/DBP: 111/61 Pulse: 61 Resp: 20 Vital signs stable, afebrile MEDICATIONS/TREATMENT: Other- See attached MAR (Medication Administration Record). CURRENT SPHINCTER CONTROL: Pre-hospital bladder status: unspecified # of bladder accidents in the last 7 days prior to screenin Pre-hospital bowel status: unspecified # of bowel accidents in the last 7 days prior to screenin Last Bowel Movement Date: 06/11/2020 CURRENT LOCOMOTION STATUS: distance walked 80X2 100 feet WITH ROLLING WALKER DETAILED CURRENT FUNCTIONAL STATUS: - Bladder accident frequency: Ind - No accidents in the past 7 days - Bowel accident frequency: Ind - No accidents in the past 7 days - Walking score based on distance walked: 0(N/A) score based on distance walked: 2(5149ft) - Wheelchair score based on distance traveled: 0(N/A) QI SCORES: - Self-Care A. Eating 03-Partial/moderate assistance B. Oral hygiene 02-Substantial/maximal assistance C. Toileting hygiene 02-Substantial/maximal assistance E. Shower/bathe self 02-Substantial/maximal assistance F. Upper body dressing 03-Partial/moderate assistance G. Lower body dressing 03-Partial/moderate assistance H. Putting on/taking off footwear 88-Not attempted due to medical condition or safety concerns - Mobility A. Roll left and right 03-Partial/moderate assistance B. Sit to lying 02-Substantial/maximal assistance C. Lying to sitting on side of bed 02-Substantial/maximal assistance D. Sit to stand 04-Supervision or touching assistance E. Chair/[id number] transfer 04-Supervision or touching assistance F. Toilet transfer 02-Substantial/maximal assistance G. Car transfer 88-Not attempted due to medical condition or safety concerns I. Walk 10 feet 04-Supervision or touching assistance J. Walk 50 feet with two turns 04-Supervision or touching assistance K. Walk 150 feet 88-Not attempted due to medical condition or safety concerns L. Walking 10 feet on uneven surfaces 88-Not attempted due to medical condition or safety concerns M. 1 step (curb) 88-Not attempted due to medical condition or safety concerns N. 4 steps 88-Not attempted due to medical condition or safety concerns O. 12 steps 88-Not attempted due to medical condition or safety concerns P. Picking up object 88-Not attempted due to medical condition or safety concerns R. Wheel 50 feet with two turns 02-Substantial/maximal assistance S. Wheel 150 feet 88-Not attempted due to medical condition or safety concerns - Bladder and Bowel Bladder continence Bowel continence - Endurance Fair - Balance Fair - Safety Awareness Fair CURRENT FUNC. DEFICITS: Self-Care, Mobility, Endurance, Balance, and Safety Awareness CURRENT / PREVIOUS ASSISTIVE DEVICES: Rolling Walker HISTORY OF FALLS. HAS THE PATIENT HAD TWO OR MORE FALLS IN THE PAST YEAR OR ANY FALL WITH INJURY IN T HE PAST YEAR?: No PRIOR SURGERY. DID THE PATIENT HAVE MAJOR SURGERY DURING THE 100 DAYS PRIOR TO ADMISSION?: No THERAPY NOTES FROM ACUTE CARE: Attached. SPECIAL NEEDS: - Safety Concerns Skin breakdown precautions needed due to skin breakdown risk PATIENT NEEDS ACTIVE AND ONGOING THERAPEUTIC INTERVENTION OF MULTIPLE THERAPY DISCIPLINES, INCLUDING: - Dietary and Nutrition Adequate Nutrition. Nutritional Education. Nutritional Supplements. PATIENT NEEDS CLOSE MEDICAL SUPERVISION BY A REHABILITATION PHYSICIAN FOR: Coordination of Treatment Team PATIENT REQUIRES 24X7 REHAB NURSING FOR MEDICAL AND FUNCTIONAL MGT. OF THE FOLLOWING DEFICITS: Disease Management Medication Management Patient/Family Education Providing Safe Environment PATIENT REQUIRES INTENSIVE, COORDINATED INTERDISCIPLINARY APPROACH TO REHAB: Arranging Home Equipment/Services Discharge Planning Family Intervention/Training Guest Services Coordinator/Case Management PATIENT REHAB POTENTIAL: Juan ORTEZ is able and expected to receive 3 hours of individualized therapy daily on at least 5 of e very 7 days Juan ORTEZ's prognosis for significant practical improvement within a reasonable period of time appea rs Good Expected level of measurable improvement will be of a practical value to Juan ORTEZ's functional capa city or adaptations to impairments Has a viable Discharge Plan Medically appropriate; condition is sufficiently stable to participate in intensive rehab program DISCHARGE PLAN: - Estimated Length of Stay (days) 10. - Consensus on plan Discharge plan has been discussed with primary caregiver. Patient/Family is in agreement with the donavan n. Primary caregiver is in agreement with the plan. - Patient/Family Goals Return home independently. - Planned Living Setting Upon Discharge Home, to live with Family/Relatives. Transitional Living. RECOMMENDED CARE LEVEL: IRF RECOMMENDATION DETAILS: Recommended Admission to Comprehensive Rehabilitation Program to Increase Functional [place] SCREENER'S COMPLETENESS CONFIRMATION: - Screening Confirmation The patient data collection on this preadmission screening form is finished PHYSICIANS REVIEW AND ADMISSION DETERMINATION Admit - Based on my review of the Pre-Admission Screening results, in my medical judgment and experie nce, I concur with the findings and recommend admission to [facility], as this patient requires an IRF level of care. SIGNATURE PANEL: Alley Worker - [electronically] signed by Ifeanyi Chapman on 06/11/2020 at 09:59 (BOOSTER STATION OPERATOR) Alley Worker - [electronically] signed by Felix Ya PT on 06/11/2020 at 11:25 (BOOSTER STATION OPERATOR) Physician Reviewer - [electronically] signed by Dr. Michael Ontiveros M.D. on 06/11/2020 at 12:04 (BOOSTER STATION OPERATOR )
[2020-06-11] MEDS ORDERED: NACHLORIDE 0.45% 1,000 ML IV SCH (13:56)
[2020-06-11] MEDS ORDERED: ONDANSETRON 4 MG/2 ML VIAL IV PRN (13:56)
[2020-06-11] MEDS: IPRATROPIUM BROM 0.5MG/2.5ML NEB SCH ×2 (14:05→19:45)
--- NOTE | 2020-06-11 16:16 | P.PN ---
Subjective Date of Service: 06/11/20 Chief Complaint: Respiratory failure Subjective: Improving (Patient is improving doing well currently on nasal cannula oxygen) Review of Systems General: Weakness Respiratory: Shortness of Breath Physical Examination - Vital Signs Temperature: 97.9 F Blood Pressure: 119/58 Pulse: 69 Respirations: 16 Assessment & Plan - Problems (Diagnosis) (1) Cor pulmonale (chronic) Current Visit: Yes Status: Acute Plan: Patient has severe cor pulmonale secondary to severe COPD titrate sat to 90% Dc IV fluids patient's bicarbonate has decline continue with Diamox no evidence of sepsis Dc antibiotic continue with present doses of steroids and bronchodilators will recheck her blood gases see she will qualify for a noninvasive ventilator prognosis very poor
[2020-06-11] MEDS: ARFORMOTEROL TARTRATE 15 MCG/2 ML VIAL.NEB NEB SCH (19:45)
[2020-06-11] MEDS: ATORVASTATIN 80 MG TAB PO SCH (19:56)
[2020-06-11] MEDS: CEFTRIAXONE/SWI 1gm 1 GM/10 ML SYR IV SCH (19:56)
[2020-06-11] MEDS: predniSONE 20 MG TAB PO SCH (19:57)
[2020-06-11] MEDS: acetaZOLAMIDE 250 MG TAB PO SCH (19:57)
[2020-06-11] MEDS ORDERED: DULERA 200/5 (MOMETASONE/FORMOTEROL) INHALER IH SCH (20:00)
[2020-06-11] MEDS: atenoloL 25 MG TAB PO SCH (20:19)
[2020-06-11] MEDS: ACETAMINOPHEN 500 MG TAB PO PRN (20:19)
[2020-06-11] MEDS: ENSURE ENLIVE 237 ML CAN PO SCH (20:36)
[2020-06-11 21:25] LABS: Urine Appearance CLEAR; Urine Bilirubin NEGATIVE (NEG); Urine Blood TRACE (NEG); Urine Color YELLOW; Urine Glucose NEGATIVE (NEG); Urine Protein TRACE (NEG); Urine Specific Gravity 1.015 (1.005-1.030)
[2020-06-11 22:05] LABS: Urine Bacteria 20-50 /HPF (<20); Urine Mucus 1+ /HPF (NONE SEEN)
[2020-06-12] MEDS: IPRATROPIUM BROM 0.5MG/2.5ML NEB SCH ×4 (01:40→20:30)
[2020-06-12 06:41] LABS: Absolute Lymphocytes (CBC) 0.4 K/uL (0.7-4.9); Basophils % 0.1 % (0-1.3); Hematocrit 40.5 % (36.0-45.0); Lymphocytes % 8.2 % (15.3-44.8); MPV 10.7 fL (7.6-11.3); RBC Red Blood Cell Count 4.14 M/uL (3.86-4.86)
[2020-06-12 06:56] LABS: Albumin 2.2 g/dL (3.4-5.0); BUN Blood Urea Nitrogen 25 mg/dL (7-18); Bicarbonate 35 mmol/L (21-32); Glucose Level 106 mg/dL (74-106); Magnesium 2.3 mg/dL (1.8-2.4); Potassium 3.9 mmol/L (3.5-5.1); Prealbumin 13.7 mg/dL (20-40); Sodium Level 144 mmol/L (136-145)
[2020-06-12] MEDS: ACETAMINOPHEN 500 MG TAB PO PRN ×2 (07:06→20:14)
[2020-06-12] MEDS: ENOXAPARIN 40 MG/0.4 ML SQ SCH (07:06)
[2020-06-12] MEDS: ARFORMOTEROL TARTRATE 15 MCG/2 ML VIAL.NEB NEB SCH ×2 (08:30→20:30)
[2020-06-12] MEDS: ASPIRIN EC 81 MG TAB PO SCH (08:36)
[2020-06-12] MEDS: predniSONE 20 MG TAB PO SCH ×2 (08:36→20:08)
[2020-06-12] MEDS: CLOPIDOGREL 75 MG TABLET PO SCH (08:36)
[2020-06-12] MEDS: acetaZOLAMIDE 250 MG TAB PO SCH ×2 (08:36→20:08)
[2020-06-12] MEDS: ENSURE ENLIVE 237 ML CAN PO SCH ×2 (08:38→20:10)
[2020-06-12] MEDS: CEFTRIAXONE/SWI 1gm 1 GM/10 ML SYR IV SCH ×2 (08:39→20:08)
[2020-06-12 09:18] LABS: Blood Morphology Comment NOT SEEN (NOT SEEN); Platelet Estimate ADEQ; White Blood Cell Scan OK (OK)
[2020-06-12] MEDS: LIDOCAINE 4% PATCH TOP SCH (10:54)
--- NOTE | 2020-06-12 14:40 | R.HP ---
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 board/care, assisted living, fci, transitional living) PRE-HOSPITAL LIVING WITH Family/Relatives ENCOUNTER PHYSICIAN: Dr. Michael Ontiveros M.D. 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 is a 75 yo Right-handed female of unknown race. On 06/06/2020 she was admitted to [facility] with diagnosis CHF. Her impairment category is Cardiac 09 - Cardiac Disorders (09). Pre-morbidly, Pt. was independent/mod-I in Endurance, Communication, Self-Care, and Safety Awareness; and she had good Transfers Control and Social Cognition. Currently, she has deficits of Locomotion, Balance, Transfers Control, and Sphincter Control. Pt. is now referred to [facility] for acute in-patient rehabilitation in order to maximize patient's functional independence in activities of daily living, strength, ROM, and mobi lity. Patient has realistic goal of being discharged at assistance level 7-Ind to reside at Home with Fami ly/Relatives. Angela Ortez is a 75 year- old female that lives at home independently. She lives in a single story home with family help when needed. She has a history of COPD, CVA,CAD,PCI,HTN, Dyslipidemia, and insomnia. She came into the emergency room with 2 weeks history of shortness of breath and leg swelling. After being amitted to the hospital, she was started on bipap because of her acute respiratory failure and after doing blood gas that showed oxygen was elevated catbon dioxide. The patient would most definitely benefit from acute inpatient rehab and has become severely debilitated and unable to live at her prior level of activity at home getting her stronger to be back living at home independently is our goal. It is reasonable and necessary for the patient to come to acute inpatient rehab for approximately 7-10 days in order to return to her prior level of care. She is now being transferred to [facility] Inpatient rehabilitation and is medically stable with relatively stable labs. She is now medically stable but in need of 24 hour nursing, doctor supervision and oversight while receiving active and ongoing intensive (PT, OT therapy a day/15 hours per week and receive care with intensive interdisciplinary approach. COVID-19 screening performed; spoke with patient via phone. Patient denies new onset of fever, cough, difficulty breathing, sore throat, body aches and non-allergy nasal congestion in the past 24 hours. Patient denies travel outside of [place] in the past 14 days. Patient denies any contact with someone who has a confirmed diagnosis of or is under investigation for COVID-19 in the past 14 days. Patient has been tested negative for COVID- 19. MEDICATION ALLERGIES: No Known Drug Allergies (NKDA) ENVIRONMENTAL ALLERGIES: - Substance Allergies None Known - Other Allergies None Known PAST MEDICAL HISTORY: CVA CAD PCI HTN DYSLIPIDEMIA INSOMNIA OSTEOPENIA OSTEOARTHRITIS AT MULTIPLE SITES GALLSTONES COPD PAST SURGICAL HISTORY: SOCIAL HISTORY: - Home Living Family/Relatives REVIEW OF SYSTEMS: - Gen No Chills Fatigue No Fever - Eyes No Double Vision No itchiness - ENMT Difficulty Swallowing - CVS No Chest Discomfort No Chest Pain Fatigue No Weight Gain - Resp No Cough Shortness of Breath - GI Continent No Abdominal Pain No Constipation No Diarrhea - Continent No Kidney Pain No Painful Urination No Urinary Urgency - MSK No Joint Pain Muscle Cramps Stiffness - Skin No Itching No Rash No Suspicious Lesions - Neuro Coordination Difficulty No Difficulty with Concentration No Memory Loss No Seizures Weakness - Psych No Anxiety No Depression No HIV Exposure No Persistent Infections No Seasonal Allergies - Endo No Cold/Heat Intolerance No Excessive Hunger No Excessive Thirst No Excessive Urination PHYSICAL EXAM - Gen Alert and awake Lying in bed No apparent distress Oriented to: person, time, and place - Skin No skin breakdown. Normacephalic - Eyes No abnormalities - ENMT No abnormalities - Neck No abnormalities No cervical adenopathy - CVS RRR - Chest Mildly decreased breath sounds bilaterally. - Resp No wheezing - Abd Soft - GI Non distended Deferred - No abnormalities - Ext Mild bilateral lower extremity edema. - MSK 4+/5 weakness in both lower extremities. Back muscle spasms. - Neuro 4/5 strength bilaterally upper and lower extremities. - Psych No abnormalities VITAL SIGNS Temperature: 98.6 F SBP/DBP: 111/61 Pulse: 61 Resp: 20 NURSING: - Shower allowing shower ACTIVITIES OOB only with supervision QI SCORES: - Self-Care A. Eating 03-Partial/moderate assistance B. Oral hygiene 02-Substantial/maximal assistance C. Toileting hygiene 02-Substantial/maximal assistance E. Shower/bathe self 02-Substantial/maximal assistance F. Upper body dressing 03-Partial/moderate assistance G. Lower body dressing 03-Partial/moderate assistance H. Putting on/taking off footwear 88-Not attempted due to medical condition or safety concerns - Mobility A. Roll left and right 03-Partial/moderate assistance B. Sit to lying 02-Substantial/maximal assistance C. Lying to sitting on side of bed 02-Substantial/maximal assistance D. Sit to stand 04-Supervision or touching assistance E. Chair/ojq-xp-tiedf transfer 04-Supervision or touching assistance F. Toilet transfer 02-Substantial/maximal assistance G. Car transfer 88-Not attempted due to medical condition or safety concerns I. Walk 10 feet 04-Supervision or touching assistance J. Walk 50 feet with two turns 04-Supervision or touching assistance K. Walk 150 feet 88-Not attempted due to medical condition or safety concerns L. Walking 10 feet on uneven surfaces 88-Not attempted due to medical condition or safety concerns M. 1 step (curb) 88-Not attempted due to medical condition or safety concerns N. 4 steps 88-Not attempted due to medical condition or safety concerns O. 12 steps 88-Not attempted due to medical condition or safety concerns P. Picking up object 88-Not attempted due to medical condition or safety concerns R. Wheel 50 feet with two turns 02-Substantial/maximal assistance S. Wheel 150 feet 88-Not attempted due to medical condition or safety concerns - Bladder and Bowel Bladder continence Bowel continence - Endurance Fair - Balance Fair - Safety Awareness Fair CURRENT FUNC. DEFICITS: Self-Care, Mobility, Endurance, Balance, and Safety Awareness MEDICATIONS: - Other See attached MAR (Medication Administration Record) ASSESSMENT: Pt. is a 75 yo Right-handed female of unknown race.On 06/06/2020 she was admitted to [facility] with diagnosis CHF.Her impairment category is Cardiac 09 - Cardiac Disorders ().Pre-morbid ly, Pt. was independent/mod-I in Endurance, Communication, Self-Care, and Safety Awareness; and she h ad good Transfers Control and Social Cognition.Currently, she has deficits of Locomotion, Balance, Tr ansfers Control, and Sphincter Control.Pt. is now referred to [facility] for a cute in-patient rehabilitation in order to maximize patient's functional independence in activities o f daily living, strength, ROM, and mobility.- Rehab Goal Patient has realistic goal of being discharged at assistance level 7-Ind to reside at Home with Fami ly/Relatives. Angela Ortez is a 75 year- old female that lives at home independently. She lives in a single story home with family help when needed. She has a history of COPD, CVA,CAD,PCI,HTN, Dyslipidemia, and insomnia. She came into the emergency room with 2 weeks history of shortness of breath and leg swelling. After being amitted to the hospital, she was started on bipap because of her acute respiratory failure and after doing blood gas that showed oxygen was elevated catbon dioxide. The patient would most definitely benefit from acute inpatient rehab and has become severely debilitated and unable to live at her prior level of activity at home getting her stronger to be back living at home independently is our goal. It is reasonable and necessary for the patient to come to acute inpatient rehab for approximately 7-10 days in order to return to her prior level of care. She is now being transferred to [facility] Inpatient rehabilitation and is medically stable with relatively stable labs. She is now medically stable but in need of 24 hour nursing, doctor supervision and oversight while receiving active and ongoing intensive (PT, OT therapy a day/15 hours per week and receive care with intensive interdisciplinary approach. COVID-19 screening performed; spoke with patient via phone. Patient denies new onset of fever, cough, difficulty breathing, sore throat, body aches and non-allergy nasal congestion in the past 24 hours. Patient denies travel outside of [place] in the past 14 days. Patient denies any contact with someone who has a confirmed diagnosis of or is under investigation for COVID-19 in the past 14 days. Patient has been tested negative for COVID- 19.REHAB PLAN: - Physical Therapy Gait dysfunction - to improve, our physical therapists will perform initial evaluation of pt's status upon admission and devise an individualized program for Gait Training, and Wheel Chair mobility Inability to transfer - to improve, our physical therapists will perform initial evaluation of pt's s tatus upon admission and devise an individualized program for Bed mobility Need for home safety evaluation - to improve, our physical therapists will perform initial evaluation of pt's status upon admission and devise an individualized program for Home Evaluation Need in caregiver upon discharge - to improve, our physical therapists will perform initial evaluatio n of pt's status upon admission and devise an individualized program for Caregiver Training Edema - to improve, our physical therapists will perform initial evaluation of pt's status upon admi ssion and devise an individualized program for Elevation Training, and Lymphedema Therapy New precaution - to improve, our physical therapists will perform initial evaluation of pt's status u kathy admission and devise an individualized program for Patient precaution education Poor balance - to improve, our physical therapists will perform initial evaluation of pt's status upo n admission and devise an individualized program for Balance Training Weakness - to improve, our physical therapists will perform initial evaluation of pt's status upon ad mission and devise an individualized program for Aquatic Therapy, Neuromuscular Reeducation, and Stre ngthening Achieving independence - to improve, our physical therapists will perform initial evaluation of pt's status upon admission and devise an individualized program for Community Reintegration Activities - Occupational Therapy Need for career services director - to improve, our occupation therapists will perform initial evaluation of pt's s tatus upon admission and devise an individualized program for Caregiver Training Weakness - to improve, our occupation therapists will perform initial evaluation of pt's status upon admission and devise an individualized program for Aquatic Therapy, Balance, Endurance, UE ROM, and U E strengthening MEDICAL PLAN: - Diet Type Start Regular - Diet - Liquid Texture Start Regular - Tube Feed Start N/A - Other See attached MAR (Medication Administration Record) - Diet - Solid Texture Regular - Shower shower DISCHARGE PLAN: - Estimated Length of Stay (days) 10. - Consensus on plan Discharge plan has been discussed with primary caregiver. Patient/Family is in agreement with the donavan n. Primary caregiver is in agreement with the plan. - Patient/Family Goals Return home independently. - Planned Living Setting Upon Discharge Home, to live with Family/Relatives. Transitional Living. 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
--- NOTE | 2020-06-12 14:44 | PAPE ---
POST ADMISSION PHYSICIAN EVALUATION PATIENT: [facility] MR# [id number] REFERRING DOCTOR PRIMARY CARE PHYSICIAN EVALUATION DATE AND TIME 06/12/2020 14:40 (RN QUALITY) NAME DANY STARK DATE OF 1945 AGE 75 PHONE SSN# [id number] GENDER female EVALUATING PHYSICIAN Dr. Michael Ontiveros M.D. ADMISSION DIAGNOSIS: CHF ONSET DATE 06/06/2020 POST-ADMISSION FUNCTIONAL/MEDICAL STATUS: - Bladder Same accident frequency: Ind - No accidents in the past 7 days - Bowel Same accident frequency: Ind - No accidents in the past 7 days - Walking Same score based on distance walked: 0(N/A) Same score based on distance walked: 2(5149ft) - Wheelchair Same score based on distance traveled: 0(N/A) STATUS CHANGE EVALUATION: No change in Functional or Medical Status is identified compared with Pre-Admission screening. PATIENT NEEDS CLOSE MEDICAL SUPERVISION BY A REHABILITATION PHYSICIAN FOR: Coordination of Treatment Team PATIENT REQUIRES 24X7 REHAB NURSING FOR MEDICAL AND FUNCTIONAL MGT. OF THE FOLLOWING DEFICITS: Disease Management Medication Management Patient/Family Education Providing Safe Environment PATIENT REQUIRES INTENSIVE, COORDINATED INTERDISCIPLINARY APPROACH TO REHAB: Arranging Home Equipment/Services Discharge Planning Family Intervention/Training Faculty Physician/Case Management LIST OF IDENTIFIED AND POTENTIAL PROBLEMS: Alteration in leisure activities Bladder, Incontinence Bowel, Incontinence Infection, Actual or Potential Mobility Impaired Pain, Alteration in Comfort Self Care Deficit Skin Integrity, Actual or Potential Urinary Tract Infection (UTI), Actual or Potential PATIENT COULD BE AT RISK FOR COMPLICATIONS FROM ADVERSE MEDICAL CONDITIONS DUE TO HIS/HER COMORBIDITI ES AND THE RIGORS OF THE INTENSIVE REHABILLITATION PROGRAM. METHODS OR INTERVENTIONS TO AVOID COMPLIC ATIONS INCLUDE: - Infection Clinical staff to assess and manage the signs and symptoms of infection including fever, redness, war mth, etc. - Urinary Tract Infection - Falls Patient will be evaluated for Fall Precautions and will be placed on Fall Precautions as indicated pe r protocol. - Skin Breakdown Nursing will assess skin daily using assessment tool and will place on Skin Breakdown Precautions as indicated per protocol. - Pain Clinical staff may employ non-medication methods such as massage, distraction, decrease stimulus, etc . as needed. Clinical staff will assess patient's pain level every shift per protocol to assess and e nsure pain management effectiveness. Medications will be given and the pain level re-assessed. PRELIMINARY PLAN OF CARE: - Physical Therapy Patient needs Physical Therapy for a daily minimum of 1.5 hours at least 5 out of 7 days, to improve: Mobility, Strengthening, Transfers, Stretching, ROM, Endurance, Ability to manage stairs, Gait, and Balance. - Speech Therapy Patient needs Speech Therapy for a daily minimum of 0.5 hours at least 5 out of 7 days, to improve: S wallowing, Cognition, Language Skills, and Compensatory Strategies. - Rehabilitation Nursing Patient requires 24x7 Rehabilitation Nursing for: Pain Issues, Identifying and preventing risk factor s, Monitoring and reporting current medical conditions, Assisting with ambulation and transfer, Pelon ting with all ADL-s, Teaching patients about disease process and medications, Family teaching, Provid ing safe environment, Bowel and Bladder Issues, Skin Integrity, and Medication Management. Patient needs Faculty Physician and/or Case Management for: Discharge Planning, Arranging Home Equipmen t or Services, and Family Interventions. - Dietary and Nutrition Services Patient needs Dietary and Nutrition Services for: Adequate Nutrition, Nutritional Supplements, and Nu tritional Education. - Occupational Therapy Patient needs Occupational Therapy for a daily minimum of 1.5 hours at least 5 out of 7 days, to impr ove Activities of Daily Living, including: Eating, Grooming, Bathing, Dressing, Toileting, Toilet Tra nsfers, Community Reintegration, Higher functional activities, Adaptive Equipment, Splinting, Househo ld Tasks, and Other activities as determined. QI SCORES: - Self-Care A. Eating 03-Partial/moderate assistance B. Oral hygiene 02-Substantial/maximal assistance C. Toileting hygiene 02-Substantial/maximal assistance E. Shower/bathe self 02-Substantial/maximal assistance F. Upper body dressing 03-Partial/moderate assistance G. Lower body dressing 03-Partial/moderate assistance H. Putting on/taking off footwear 88-Not attempted due to medical condition or safety concerns - Mobility A. Roll left and right 03-Partial/moderate assistance B. Sit to lying 02-Substantial/maximal assistance C. Lying to sitting on side of bed 02-Substantial/maximal assistance D. Sit to stand 04-Supervision or touching assistance E. Chair/nql-oq-lwgdk transfer 04-Supervision or touching assistance F. Toilet transfer 02-Substantial/maximal assistance G. Car transfer 88-Not attempted due to medical condition or safety concerns I. Walk 10 feet 04-Supervision or touching assistance J. Walk 50 feet with two turns 04-Supervision or touching assistance K. Walk 150 feet 88-Not attempted due to medical condition or safety concerns L. Walking 10 feet on uneven surfaces 88-Not attempted due to medical condition or safety concerns M. 1 step (curb) 88-Not attempted due to medical condition or safety concerns N. 4 steps 88-Not attempted due to medical condition or safety concerns O. 12 steps 88-Not attempted due to medical condition or safety concerns P. Picking up object 88-Not attempted due to medical condition or safety concerns R. Wheel 50 feet with two turns 02-Substantial/maximal assistance S. Wheel 150 feet 88-Not attempted due to medical condition or safety concerns - Bladder and Bowel Bladder continence Bowel continence - Endurance Fair - Balance Fair - Safety Awareness Fair POTENTIAL FUNCTIONAL GOALS FOR PATIENT TO ACHIEVE BY DISCHARGE: - Safety Precaution Patient will remain free from falls or injury at time of discharge. - Bed Mobility Patient will perform bed mobility at 4-Billie level of assistance. - Transfers Patient will complete transfers from bed to chair at 4-Billie level of assistance. - Mobility Patient will ambulate 150 ft with 4-Billie level of assistance with RW. PATIENT REHAB POTENTIAL Juan STARK is able and expected to receive 3 hours of individualized therapy daily on at least 5 of e very 7 days Juan STARK's prognosis for significant practical improvement within a reasonable period of time appea rs Good Expected level of measurable improvement will be of a practical value to Juan STARK's functional capa city or adaptations to impairments Has a viable Discharge Plan Medically appropriate; condition is sufficiently stable to participate in intensive rehab program DISCHARGE PLAN: - Estimated Length of Stay (days) 10. - Consensus on plan Discharge plan has been discussed with primary caregiver. Patient/Family is in agreement with the donavan n. Primary caregiver is in agreement with the plan. - Patient/Family Goals Return home independently. - Planned Living Setting Upon Discharge Home, to live with Family/Relatives. Transitional Living. CONCLUSION ON REHABILITATION NECESSITY: I have evaluated patient's pre-admission functional status and, comparing it to the patient's post-ad mission functional status now, I conclude that the pre-admission assessment was accurate. Patient's c ondition on admission supports the medical necessity of admission to IRF. It is safe to proceed with patient's therapy program. SIGNATURE PANEL: (RN QUALITY)
[2020-06-12] MEDS: ALBUTEROL 2.5 MG/3 ML NEB SOL NEB PRN (14:45)
--- NOTE | 2020-06-12 19:36 | PN ---
Date of Progress Note: 06/12/2020 Subjective: The patient was seen this afternoon for followup. She was on rehab floor, lying in bed, not in distress, on nasal cannula oxygen. She did use BiPAP last night. Objective: Vital Signs: Reviewed. HEENT: Unremarkable. Lungs: Clear to auscultation. Heart: Sounds normal. Abdomen: Soft. Bowel sounds normal. No guarding, rigidity, tenderness, distention. Extremities: Bilateral leg edema present, unchanged from yesterday. Laboratory Data: White count 4.7, hemoglobin 12.5, platelets 139. Sodium 144, potassium 3.9, chlori de 106, bicarb 35, BUN 25, creatinine 0.71, glucose 106, albumin 2.2. Impression: 1.Acute respiratory failure with hypoxia and hypercapnia. 2.Acute exacerbation of chronic obstructive pulmonary disease. 3.Cor pulmonale, acute. 4.Right-sided heart failure. 5.Hypertension. 6.Bilateral pleural effusion. 7.Malnutrition. Plan: We will go ahead and continue physical therapy under guidance of Dr. Ontiveros. We will contin ue her acetazolamide. Continue current nebulizer treatment. We will continue current empiric antibi otic, which is ceftriaxone. Urinalysis results reviewed. It is abnormal, consistent with urinary tr act infection. The patient is on Lovenox for DVT prophylaxis and prednisone 20 mg b.i.d. dose will b e continued at this point. We will decide about reducing prednisone dose over few days. We will see h er tomorrow for followup. ANGELICA/MODL Voice ID: [id number] Report ID: [id number]
[2020-06-12] MEDS: atenoloL 25 MG TAB PO SCH ×2 (20:08→21:00)
[2020-06-12] MEDS: ATORVASTATIN 80 MG TAB PO SCH (20:08)
[2020-06-12] MEDS: MELATONIN 3 MG TABLET PO PRN (20:09)
[2020-06-13] MEDS: IPRATROPIUM BROM 0.5MG/2.5ML NEB SCH ×4 (03:40→19:25)
[2020-06-13] MEDS: ARFORMOTEROL TARTRATE 15 MCG/2 ML VIAL.NEB NEB SCH (08:00)
[2020-06-13] MEDS: acetaZOLAMIDE 250 MG TAB PO SCH ×4 (08:00→20:12)
[2020-06-13] MEDS: ENOXAPARIN 40 MG/0.4 ML SQ SCH (08:56)
[2020-06-13] MEDS: CLOPIDOGREL 75 MG TABLET PO SCH (08:56)
[2020-06-13] MEDS: predniSONE 20 MG TAB PO SCH ×2 (08:56→20:12)
[2020-06-13] MEDS: ASPIRIN EC 81 MG TAB PO SCH (08:56)
[2020-06-13] MEDS: LIDOCAINE 4% PATCH TOP SCH (08:57)
[2020-06-13] MEDS: CEFTRIAXONE/SWI 1gm 1 GM/10 ML SYR IV SCH ×2 (08:57→20:11)
[2020-06-13] MEDS: ENSURE ENLIVE 237 ML CAN PO SCH ×2 (10:00→20:13)
--- NOTE | 2020-06-13 11:10 | PN ---
Date of Progress Note: 06/12/2020 Subjective: Mrs. Ortez is a 75-year-old woman, I saw her when Dr. Dooley admitted her a few days ago because of acute respiratory failure that I thought was more consistent with COPD exacerbation and s evere pulmonary hypertension. She had an echocardiogram showing ejection fraction more than 65%. Sh e had pulmonary hypertension with right ventricular systolic pressure more than 65. She underwent a long hospitalization with treatment with BiPAP and CPAP and inhalers. She is now transferred to [facility]. Her problems include hypertension, dyslipidemia, COPD, pulmonary hypertension, and history of cor onary artery disease. She is now on nasal cannula at 4 L with an O2 saturation of 91%. No cardiac c omplaints. She is presently on antibiotics aspirin, Plavix, Lipitor, inhalers, Lovenox, and Diamox. I have no f urther recommendation regarding Mrs. Ortez's therapy. I would definitely stay away from beta block ers considering her COPD. She was taking Norvasc at home and I think a low-dose calcium valentin may be helpful regarding her pulmonary hypertension. She will need long-term pulmonary followup. I will be available for questions if the need arises. TOBIN/LOLA Voice ID: [id number] Report ID: [id number]
[2020-06-13] MEDS: ACETAMINOPHEN 500 MG TAB PO PRN (13:05)
--- NOTE | 2020-06-13 13:10 | PN ---
Date of Progress Note: 06/13/2020 Subjective: The patient was seen for followup this morning. No new complaints or problems reported by her. Objective: Vital Signs: Reviewed. HEENT: Unremarkable. Lungs: Bilateral equal air entry with diminished air entry in the lower lung field, unchanged from b efore. Heart: Sounds normal. Abdomen: Soft. Bowel sounds normal. No guarding, rigidity, tenderness, or distention. Extremities: Bilateral leg edema present, but better than before. Impression: 1.Acute exacerbation of chronic obstructive pulmonary disease, improved. 2.Hypertension. 3.Hyperlipidemia. 4.Acute respiratory failure with hypoxia and hypercapnia, stable. 5.Pleural effusion. Plan: We will continue current medications. The patient remains on acetazolamide 250 mg 2 times a d ay. We will continue that. We will continue her aspirin and she is on Lovenox for DVT prophylaxis, we will continue that. We will continue her nebulizer treatment and current antibiotics. I will see her tomorrow for followup. ANGELICA/MODL Voice ID: [id number] Report ID: [id number]
--- NOTE | 2020-06-13 14:16 | RAD REPORT ---
EXAM DESCRIPTION: Markus Single View06/13/2020 1:56 pm CLINICAL HISTORY: Shortness of breath COMPARISON: June 09 FINDINGS: Small to moderate bilateral pleural effusions with bibasilar atelectasis Mild additional bilateral pulmonary opacities probably mild pulmonary edema. Heart remains enlarged
[2020-06-13 15:19] LABS: Absolute Lymphocytes (CBC) 0.3 K/uL (0.7-4.9); Basophils % 0.1 % (0-1.3); Hematocrit 42.8 % (36.0-45.0); Lymphocytes % 6.1 % (15.3-44.8); MPV 10.3 fL (7.6-11.3); RBC Red Blood Cell Count 4.39 M/uL (3.86-4.86)
[2020-06-13 15:32] LABS: Potassium 4.1 mmol/L (3.5-5.1)
[2020-06-13] MEDS: atenoloL 25 MG TAB PO SCH (20:12)
[2020-06-13] MEDS: CRANBERRY FRUIT EXTRACT 200 MG CAP PO SCH (20:12)
[2020-06-13] MEDS: DOCUSATE NA/SENNA CONC 1 TAB PO PRN (20:12)
[2020-06-13] MEDS: TRAZODONE 50 MG TABLET PO PRN (20:13)
[2020-06-13] MEDS: ATORVASTATIN 80 MG TAB PO SCH (20:14)
[2020-06-14] MEDS: IPRATROPIUM BROM 0.5MG/2.5ML NEB SCH ×4 (01:00→19:15)
[2020-06-14] MEDS: ENOXAPARIN 40 MG/0.4 ML SQ SCH (07:08)
[2020-06-14] MEDS: CEFTRIAXONE/SWI 1gm 1 GM/10 ML SYR IV SCH ×2 (07:08→19:29)
[2020-06-14] MEDS: LIDOCAINE 4% PATCH TOP SCH (07:09)
[2020-06-14] MEDS: predniSONE 20 MG TAB PO SCH ×2 (08:03→19:29)
[2020-06-14] MEDS: CLOPIDOGREL 75 MG TABLET PO SCH (08:03)
[2020-06-14] MEDS: ENSURE ENLIVE 237 ML CAN PO SCH ×2 (08:04→19:29)
[2020-06-14] MEDS: CRANBERRY FRUIT EXTRACT 200 MG CAP PO SCH ×2 (08:04→19:29)
[2020-06-14] MEDS: acetaZOLAMIDE 250 MG TAB PO SCH ×2 (08:04→19:29)
[2020-06-14] MEDS: ASPIRIN EC 81 MG TAB PO SCH (08:04)
[2020-06-14] MEDS: ACETAMINOPHEN 500 MG TAB PO PRN (10:59)
[2020-06-14] MEDS ORDERED: ZIPRASIDONE 20 MG CAP PO ONE (18:00)
[2020-06-14] MEDS: ARFORMOTEROL TARTRATE 15 MCG/2 ML VIAL.NEB NEB SCH (19:15)
[2020-06-14] MEDS: ATORVASTATIN 80 MG TAB PO SCH (19:29)
[2020-06-14] MEDS: MELATONIN 3 MG TABLET PO PRN (19:30)
[2020-06-14] MEDS: atenoloL 25 MG TAB PO SCH (19:30)
[2020-06-14] MEDS: TRAZODONE 50 MG TABLET PO PRN (21:52)
[2020-06-15] MEDS: IPRATROPIUM BROM 0.5MG/2.5ML NEB SCH ×4 (01:00→19:40)
[2020-06-15] MEDS: CEFTRIAXONE/SWI 1gm 1 GM/10 ML SYR IV SCH ×2 (07:36→21:03)
[2020-06-15] MEDS: CRANBERRY FRUIT EXTRACT 200 MG CAP PO SCH ×2 (07:37→21:03)
[2020-06-15] MEDS: acetaZOLAMIDE 250 MG TAB PO SCH ×2 (07:37→21:03)
[2020-06-15] MEDS: CLOPIDOGREL 75 MG TABLET PO SCH (07:37)
[2020-06-15] MEDS: predniSONE 20 MG TAB PO SCH ×2 (07:37→21:03)
[2020-06-15] MEDS: ASPIRIN EC 81 MG TAB PO SCH (07:37)
[2020-06-15] MEDS: ENOXAPARIN 40 MG/0.4 ML SQ SCH (07:37)
[2020-06-15] MEDS: ENSURE ENLIVE 237 ML CAN PO SCH ×2 (07:38→21:04)
[2020-06-15] MEDS: LIDOCAINE 4% PATCH TOP SCH (08:35)
[2020-06-15] MEDS: ARFORMOTEROL TARTRATE 15 MCG/2 ML VIAL.NEB NEB SCH ×2 (08:50→19:40)
[2020-06-15] MEDS: TRAZODONE 50 MG TABLET PO PRN (21:03)
[2020-06-15] MEDS: ATORVASTATIN 80 MG TAB PO SCH (21:03)
[2020-06-15] MEDS: atenoloL 25 MG TAB PO SCH (21:03)
[2020-06-15] MEDS: MELATONIN 3 MG TABLET PO PRN (21:30)
--- NOTE | 2020-06-15 22:43 | PN ---
Date of Progress Note: 06/14/2020 Subjective: The patient was evaluated today via TeleVisit that included audio component only. Due to technical difficulty, we were not able to get audio and video visit. No new complaints or problems reported by the patient. Nursing staff reported that the patient was having some confusion today and last night, she refused to use her BiPAP. I did talk to the patient and explained her importance of using BiPAP and it was advised for the patient to use BiPAP for rest of the day today and to use it at nighttime, and she agreed to do so. Impression: 1. Acute respiratory failure with hypoxia and hypercapnia. 2. Acute exacerbation of chronic obstructive pulmonary disease. 3. Cor pulmonale. Plan: We will go ahead and continue current medication. She is on steroid and nebulizer treatment and diuretic medicine. I will see her tomorrow for followup. ANGELICA/MODL Voice ID: [id number] Report ID: [id number] HOLDEN
[2020-06-16] MEDS: ACETAMINOPHEN 500 MG TAB PO PRN ×3 (00:30→22:12)
--- NOTE | 2020-06-16 01:39 | R.PN ---
PROGRESS NOTES ENCOUNTER DATE AND TIME: 06/15/2020 19:16 (LOGISTICS ASSISTANT) NAME DANY STARK DATE OF : 1945 DATE OF ADMISSION: 06/11/2020 13:39 (LOGISTICS ASSISTANT) CHF, respiratory failure, COPDCHIEF COMPLAINT: CHF, COPD, debility SUBJECTIVE: Pt denied any depression. Pt denied any Shortness of Breath. She reports mild SOB with decreased O2 sat when ambulating. She has O2 via nasal cannula. She is mookie ng fair overall progress with all therapy. Labs reviewed and are stable. VITAL SIGNS Temperature: 97.9 F SBP/DBP: 115/65 Pulse: 65 Resp: 18 MEDICATION ALLERGIES: No Known Drug Allergies (NKDA) ENVIRONMENTAL ALLERGIES: - Substance Allergies None Known - Other Allergies None Known NURSING: - Shower allowing shower ACTIVITIES OOB only with supervision THERAPIES: - Dietary and Nutrition Adequate Nutrition. Nutritional Education. Nutritional Supplements. PHYSICAL EXAM - Gen Alert and awake Lying in bed No apparent distress Oriented to: person, time, and place - Skin No skin breakdown. Normacephalic - Eyes No abnormalities - ENMT No abnormalities - Neck No abnormalities No cervical adenopathy - CVS RRR - Chest Mildly decreased breath sounds bilaterally. - Resp No wheezing - Abd Soft - GI Non distended Deferred - No abnormalities - Ext Mild bilateral lower extremity edema. - MSK 4+/5 weakness in both lower extremities. Back muscle spasms. - Neuro 4/5 strength bilaterally upper and lower extremities. - Psych No abnormalities ASSESSMENT: Pt. is a 75 yo Right-handed female of unknown race.On 06/06/2020 she was admitted to [facility] with diagnosis CHF, respiratory failure, COPD.Her impairment category is Cardiac 09 - Cardia c Disorders (09).Pre-morbidly, Pt. was independent/mod-I in Endurance, Communication, Self-Care, and Safety Awareness; and she had good Transfers Control and Social Cognition.Currently, she has deficits of Locomotion, Balance, Transfers Control, and Sphincter Control.Pt. is now referred to [facility] for acute in-patient rehabilitation in order to maximize patient's functional i ndependence in activities of daily living, strength, ROM, and mobility.- Rehab Goal Patient has realistic goal of being discharged at assistance level 7-Ind to reside at Home with Fami ly/Relatives. MDM/PLAN: - Balance for Weakness - Bed mobility for ADL deficits - Lymphedema Therapy for Edema - Physical Therapy Gait dysfunction - to improve, our physical therapists will perform initial evaluation of pt's status upon admission and devise an individualized program for Gait Training, and Wheel Chair mobility Inability to transfer - to improve, our physical therapists will perform initial evaluation of pt's status upon admission and devise an individualized program for Bed mobility Need for home safety evaluation - to improve, our physical therapists will perform initial evaluatio n of pt's status upon admission and devise an individualized program for Home Evaluation Need in caregiver upon discharge - to improve, our physical therapists will perform initial evaluatio n of pt's status upon admission and devise an individualized program for Caregiver Training Edema - to improve, our physical therapists will perform initial evaluation of pt's status upon admis essie and devise an individualized program for Elevation Training, and Lymphedema Therapy New precaution - to improve, our physical therapists will perform initial evaluation of pt's status u kathy admission and devise an individualized program for Patient precaution education Poor balance - to improve, our physical therapists will perform initial evaluation of pt's status up on admission and devise an individualized program for Balance Training Weakness - to improve, our physical therapists will perform initial evaluation of pt's status upon ad mission and devise an individualized program for Aquatic Therapy, Neuromuscular Reeducation, and Stre ngthening Achieving independence - to improve, our physical therapists will perform initial evaluation of pt's status upon admission and devise an individualized program for Community Reintegration Activities - Occupational Therapy Need for child day care teacher - to improve, our occupation therapists will perform initial evaluation of pt's s tatus upon admission and devise an individualized program for Caregiver Training Weakness - to improve, our occupation therapists will perform initial evaluation of pt's status upon admission and devise an individualized program for Aquatic Therapy, Balance, Endurance, UE ROM, and U E strengthening - Other See attached MAR (Medication Administration Record) - Diet Type Regular - Diet - Liquid Texture Regular - Tube Feed N/A - Diet - Solid Texture Regular - Shower allowing shower FUNCTIONAL STATUS: UPDATED AT WEEKLY TEAM CONFERENCE - Bladder Same accident frequency: 7-Ind - No accidents in the past 7 days - Bowel Same accident frequency: 7-Ind - No accidents in the past 7 days - Walking Same score based on distance walked: 0(N/A) Same score based on distance walked: 2(50-149ft) - Wheelchair Same score based on distance traveled: 0(N/A) FUNCTIONAL STATUS: - Self-Care A. Eating Yoko B. Grooming Billie C. Bathing modA D. Dressing - Upper Billie E. Dressing - Lower modA F. Toileting Billie - Sphincter Control G. Bladder control Yoko H. Bowel control Yoko - Transfers Control I. Bed/Chair/Wheelchair Billie J. Toilet Billie K. Tub/Shower modA - Locomotion L. Walk/Wheelchair (B) modA M. Stairs ADNO - Communication N. Comprehension (B) sup O. Expression (B) sup - Social Cognition P. Social Interaction sup Q. Problem Solving sup R. Memory sup - Endurance Fair - Balance Poor - Safety Awareness Poor QI SCORES: - Self-Care A. Eating 03-Partial/moderate assistance B. Oral hygiene 02-Substantial/maximal assistance C. Toileting hygiene 02-Substantial/maximal assistance E. Shower/bathe self 02-Substantial/maximal assistance F. Upper body dressing 03-Partial/moderate assistance G. Lower body dressing 03-Partial/moderate assistance H. Putting on/taking off footwear 88-Not attempted due to medical condition or safety concerns - Mobility A. Roll left and right 03-Partial/moderate assistance B. Sit to lying 02-Substantial/maximal assistance C. Lying to sitting on side of bed 02-Substantial/maximal assistance D. Sit to stand 04-Supervision or touching assistance E. Chair/eif-xo-uxokx transfer 04-Supervision or touching assistance F. Toilet transfer 02-Substantial/maximal assistance G. Car transfer 88-Not attempted due to medical condition or safety concerns I. Walk 10 feet 04-Supervision or touching assistance J. Walk 50 feet with two turns 04-Supervision or touching assistance K. Walk 150 feet 88-Not attempted due to medical condition or safety concerns L. Walking 10 feet on uneven surfaces 88-Not attempted due to medical condition or safety concerns M. 1 step (curb) 88-Not attempted due to medical condition or safety concerns N. 4 steps 88-Not attempted due to medical condition or safety concerns O. 12 steps 88-Not attempted due to medical condition or safety concerns P. Picking up object 88-Not attempted due to medical condition or safety concerns R. Wheel 50 feet with two turns 02-Substantial/maximal assistance S. Wheel 150 feet 88-Not attempted due to medical condition or safety concerns - Bladder and Bowel Bladder continence Bowel continence - Endurance Fair - Balance Fair - Safety Awareness Fair CURRENT [facility]. DEFICITS: Self-Care, Mobility, Endurance, Balance, and Safety Awareness SIGNATURE PANEL: (LOGISTICS ASSISTANT)
[2020-06-16] MEDS: IPRATROPIUM BROM 0.5MG/2.5ML NEB SCH ×4 (02:25→20:00)
[2020-06-16] MEDS: ENOXAPARIN 40 MG/0.4 ML SQ SCH (06:36)
[2020-06-16] MEDS: ENSURE ENLIVE 237 ML CAN PO SCH ×2 (07:40→20:44)
[2020-06-16] MEDS: ARFORMOTEROL TARTRATE 15 MCG/2 ML VIAL.NEB NEB SCH ×2 (08:01→19:00)
[2020-06-16] MEDS: CEFTRIAXONE/SWI 1gm 1 GM/10 ML SYR IV SCH (08:50)
[2020-06-16] MEDS: LIDOCAINE 4% PATCH TOP SCH (08:51)
[2020-06-16] MEDS: acetaZOLAMIDE 250 MG TAB PO SCH ×2 (08:52→20:44)
[2020-06-16] MEDS: CLOPIDOGREL 75 MG TABLET PO SCH (08:52)
[2020-06-16] MEDS: ASPIRIN EC 81 MG TAB PO SCH (08:52)
[2020-06-16] MEDS: CRANBERRY FRUIT EXTRACT 200 MG CAP PO SCH ×2 (08:52→20:42)
[2020-06-16] MEDS: predniSONE 20 MG TAB PO SCH (08:52)
--- NOTE | 2020-06-16 10:49 | PN ---
Date of Progress Note: 06/15/2020 Subjective: The patient was seen for followup today. No new complaints or problems reported by her. She was sitting in the chair and she is still somewhat confused at times when I was communicating w ith her. Her son was present with her at bedside. She used BiPAP last night, but get off it around 2 a.m., after that she did not wear it. Objective: Vital Signs: Reviewed. HEENT: Unremarkable. Lungs: Bilateral shallow air entry with diminished air entry in the lower lung funk. Not using an y accessory muscles of respiration. Heart: Sounds normal. Abdomen: Soft. Bowel sounds normal. No guarding, rigidity, tenderness, distention. Extremities: Bilateral leg edema present, more today than the day before yesterday. Impression: 1.Acute respiratory failure with hypoxia and hypercapnia. 2.Metabolic encephalopathy secondary to above. 3.Acute exacerbation of chronic obstructive pulmonary disease. 4.Cor pulmonale. 5.Right-sided heart failure. Plan: We will go ahead and continue current medications, continue acetazolamide and we will continue nebulizer treatments, steroids. The patient was encouraged to use her BiPAP all night every night a nd I did talk to Dr. Thomas to see if the patient would qualify for noninvasive vent upon discharge and he will look into that. The patient continues to smoke and she was advised to quit smoking. Mirza lanier was also made aware of the fact that with ongoing longstanding history of smoking, her overall prognosis will remain poor if she continues to smoke. I will see her tomorro w for followup. ANGELICA/MODL Voice ID: [id number] Report ID: [id number]
--- NOTE | 2020-06-16 13:24 | P.PN ---
Subjective Date of Service: 06/16/20 Chief Complaint: Respiratory failure Subjective: Improving (Patient is a little confused disoriented difficulty keeping BiPAP own) Review of Systems General: Weakness Respiratory: Shortness of Breath Physical Examination - Vital Signs Temperature: 97.7 F Blood Pressure: 119/56 Pulse: 58 Respirations: 18 Pulse Ox (%): 92 - Physical Exam General: Alert, Delirious Neck: Supple Respiratory: Clear to auscultation bilaterally, Diminished Cardiovascular: Normal S1 S2, Edema Assessment & Plan - Problems (Diagnosis) (1) Cor pulmonale (chronic) Current Visit: Yes Status: Acute Plan: Patient has severe cor pulmonale from COPD (2) Chronic respiratory failure Current Visit: Yes Status: Acute Plan: Patient has chronic respiratory failure and will benefit from a noninvasive ventilator to prevent Re admissions to the hospital BiPAP therapy is not suitable due to the severity of patient's condition no history of obstructive sleep apnea patient has severe cor pulmonale vital signs are stable continue with Diamox Dc antibiotics reduce dose of prednisone great sat to 88-90% discuss with the nurse present at the bedside I have ordered a noninvasive ventilator for the patient
--- NOTE | 2020-06-16 13:58 | PN ---
Date of Progress Note: 06/16/2020 Subjective: The patient was seen for followup this morning. No new complaints or problems reported by her. Lying in bed, not in distress. She did use her BiPAP last night reported by nursing staff. Objective: Vital Signs: Reviewed. HEENT: Unremarkable. Lungs: Clear to auscultation. Heart: Sounds normal. Abdomen: Soft. Bowel sounds normal. No guarding, rigidity, tenderness, distention. Extremities: Bilateral leg edema present, unchanged from yesterday. 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 Impression: 1. Chronic respiratory failure with hypercapnia and hypoxia. 2. Chronic obstructive pulmonary disease. 3. Right-sided heart failure. Plan: The patient came in with acute respiratory failure with hypercapnia, hypoxia, and we believe that what she has is underlying chronic respiratory failure with hypercapnia and hypoxia. She will need right now in the hospital. BiPAP therapy every night and during day time and when she is not doing physical therapy, she should use BiPAP. Details were discussed with the nurse to use BiPAP as much as we can. Meanwhile, Dr. Thomas will plan to see if he can arrange for noninvasive ventilator at home upon discharge. We will continue on steroid and other current medications. I will see her tomorrow for followup. ANGELICA/MODL Voice ID: [id number] Report ID: [id number] HOLDEN
[2020-06-16] MEDS: ATORVASTATIN 80 MG TAB PO SCH (20:43)
[2020-06-16] MEDS: predniSONE 10 MG TAB PO SCH (20:44)
[2020-06-16] MEDS: atenoloL 25 MG TAB PO SCH (20:44)
[2020-06-16] MEDS: MELATONIN 3 MG TABLET PO PRN (20:45)
[2020-06-16] MEDS: TRAZODONE 50 MG TABLET PO PRN (21:39)
[2020-06-17] MEDS: IPRATROPIUM BROM 0.5MG/2.5ML NEB SCH ×4 (01:15→20:50)
[2020-06-17 06:26] LABS: Absolute Lymphocytes (CBC) 0.4 K/uL (0.7-4.9); Basophils % 0.2 % (0-1.3); Hematocrit 39.7 % (36.0-45.0); Lymphocytes % 6.5 % (15.3-44.8); MPV 9.8 fL (7.6-11.3); RBC Red Blood Cell Count 4.11 M/uL (3.86-4.86)
[2020-06-17] MEDS: ENOXAPARIN 40 MG/0.4 ML SQ SCH (06:42)
[2020-06-17 06:49] LABS: Albumin 2.2 g/dL (3.4-5.0); Magnesium 2.3 mg/dL (1.8-2.4); Potassium 4.8 mmol/L (3.5-5.1); Prealbumin 18.9 mg/dL (20-40)
[2020-06-17] MEDS: ARFORMOTEROL TARTRATE 15 MCG/2 ML VIAL.NEB NEB SCH ×2 (08:00→20:50)
[2020-06-17] MEDS: ENSURE ENLIVE 237 ML CAN PO SCH (08:00)
[2020-06-17] MEDS: acetaZOLAMIDE 250 MG TAB PO SCH ×2 (08:21→18:53)
[2020-06-17] MEDS: CRANBERRY FRUIT EXTRACT 200 MG CAP PO SCH ×2 (08:21→18:52)
[2020-06-17] MEDS: predniSONE 10 MG TAB PO SCH ×2 (08:21→18:53)
[2020-06-17] MEDS: ASPIRIN EC 81 MG TAB PO SCH (08:21)
[2020-06-17] MEDS: LIDOCAINE 4% PATCH TOP SCH (08:21)
[2020-06-17] MEDS: CLOPIDOGREL 75 MG TABLET PO SCH (08:23)
[2020-06-17] MEDS: ACETAMINOPHEN 500 MG TAB PO PRN ×2 (08:30→21:19)
[2020-06-17 08:46] LABS: Platelet Estimate ADEQ; White Blood Cell Scan OK (OK)
[2020-06-17 08:48] LABS: Anisocytosis 1+; Blood Morphology Comment NOTED (NOT SEEN)
--- NOTE | 2020-06-17 13:25 | PN ---
Date of Progress Note: 06/17/2020 Subjective: The patient was seen this morning for followup. She was lying in bed. She appeared chanda ke, alert, not confused like last couple of days and she did use her BiPAP last night. Objective: Vital Signs: Reviewed. HEENT: Unremarkable except diminished air entry in the lower lung funk. Not in any respiratory di stress. When I saw her, she was on nasal cannula oxygen. Heart: Sounds normal. Abdomen: Soft. Bowel sounds normal. No guarding, rigidity, tenderness, or distention. Extremities: Bilateral leg edema unchanged. Laboratory Data: White count 6.3, hemoglobin 12.8, platelets 170. Sodium 146, potassium 4.8, chlori de 110, bicarb 33, BUN 22, creatinine 0.77, glucose 107. Impression: 1.Chronic respiratory failure with hypercapnia and hypoxia. 2.Chronic obstructive pulmonary disease. 3.Hypertension. Plan: We will go ahead and continue current prednisone. Continue current Lovenox, nebulizer treatme nt and current diuretic medication which is acetazolamide. The patient was encouraged to use her BiP AP all night and also was encouraged to use it during evening hours after she is done with her physic al therapy. ANGELICA/MODL Voice ID: [id number] Report ID: [id number]
[2020-06-17] MEDS: ENSURE HIGH PROTEIN 237 ML CAN PO SCH (18:51)
[2020-06-17] MEDS: atenoloL 25 MG TAB PO SCH (18:52)
[2020-06-17] MEDS: ATORVASTATIN 80 MG TAB PO SCH (18:52)
[2020-06-17] MEDS ORDERED: ONDANSETRON 4 MG (ODT) TAB PO PRN (19:50)
[2020-06-17] MEDS: MELATONIN 3 MG TABLET PO PRN (19:59)
[2020-06-17] MEDS: TRAZODONE 50 MG TABLET PO PRN (19:59)
[2020-06-18] MEDS: IPRATROPIUM BROM 0.5MG/2.5ML NEB SCH ×4 (02:00→20:10)
[2020-06-18 06:39] LABS: BUN Blood Urea Nitrogen 24 mg/dL (7-18); Bicarbonate 35 mmol/L (21-32); Glucose Level 94 mg/dL (74-106); Potassium 5.2 mmol/L (3.5-5.1); Sodium Level 143 mmol/L (136-145)
[2020-06-18] MEDS: ENOXAPARIN 40 MG/0.4 ML SQ SCH (07:30)
[2020-06-18] MEDS: ARFORMOTEROL TARTRATE 15 MCG/2 ML VIAL.NEB NEB SCH ×2 (08:00→20:10)
[2020-06-18] MEDS: ENSURE HIGH PROTEIN 237 ML CAN PO SCH ×2 (08:41→19:09)
[2020-06-18] MEDS: predniSONE 10 MG TAB PO SCH ×2 (08:41→19:09)
[2020-06-18] MEDS: acetaZOLAMIDE 250 MG TAB PO SCH ×2 (08:41→19:09)
[2020-06-18] MEDS: CRANBERRY FRUIT EXTRACT 200 MG CAP PO SCH ×2 (08:41→19:09)
[2020-06-18] MEDS: CLOPIDOGREL 75 MG TABLET PO SCH (08:41)
[2020-06-18] MEDS: ASPIRIN EC 81 MG TAB PO SCH (08:41)
[2020-06-18] MEDS ORDERED: SOD POLYSTYREN SUL 15 GM/60 ML UCUP PO ONE (08:48)
--- NOTE | 2020-06-18 10:11 | P.RH.PN ---
Estimated Length of Stay: 14 Expected Discharge Date: 06/22/20 Discharge Disposition Plan: Home Family Support: Yes Long-Term Goal: Mobility, Transfers, Self Care Vital Signs: Last Vital Signs Temp 98.1 F 06/18/20 08:08 Pulse 60 06/18/20 08:08 Resp 18 06/18/20 08:08 BP 108/47 L 06/18/20 08:08 Pulse Ox 96 06/18/20 08:08 Laboratory: Laboratory Last Values WBC 6.30 K/uL (4.3-10.9) D 06/17/20 06:10 RBC 4.11 M/uL (3.86-4.86) 06/17/20 06:10 Hgb 12.8 g/dL (12.0-15.0) 06/17/20 06:10 Hct 39.7 % (36.0-45.0) 06/17/20 06:10 MCV 96.6 fL (80-100) 06/17/20 06:10 MCH 31.3 pg (27.0-35.0) 06/17/20 06:10 MCHC 32.3 g/dL (32.0-36.0) 06/17/20 06:10 RDW 17.9 % (12.1-15.2) H 06/17/20 06:10 Plt Count 170 K/uL (152-406) 06/17/20 06:10 MPV 9.8 fL (7.6-11.3) 06/17/20 06:10 Neutrophils % 87.5 % (41.7-73.7) H 06/17/20 06:10 Lymphocytes % 6.5 % (15.3-44.8) L 06/17/20 06:10 Monocytes % 5.6 % (3.3-12.3) 06/17/20 06:10 Eosinophils % 0.2 % (0-4.4) 06/17/20 06:10 Basophils % 0.2 % (0-1.3) 06/17/20 06:10 Absolute Neutrophils 5.5 K/uL (1.8-8.0) 06/17/20 06:10 Absolute Lymphocytes 0.4 K/uL (0.7-4.9) L 06/17/20 06:10 Absolute Monocytes 0.4 K/uL (0.1-1.3) 06/17/20 06:10 Absolute Eosinophils 0.0 K/uL (0-0.5) 06/17/20 06:10 Absolute Basophils 0.0 K/uL (0-0.5) 06/17/20 06:10 Platelet Estimate Adeq 06/17/20 06:10 Anisocytosis 1+ 06/17/20 06:10 Morphology Comment Noted (NOT SEEN) 06/17/20 06:10 Sodium 143 mmol/L (136-145) 06/18/20 06:03 Potassium 5.2 mmol/L (3.5-5.1) H 06/18/20 06:03 Chloride 108 mmol/L (98-107) H 06/18/20 06:03 Carbon Dioxide 35 mmol/L (21-32) H 06/18/20 06:03 BUN 24 mg/dL (7-18) H 06/18/20 06:03 Creatinine 0.68 mg/dL (0.55-1.3) 06/18/20 06:03 Estimated GFR > 90 mL/min (=/>90) 06/18/20 06:03 Glucose 94 mg/dL (74-106) 06/18/20 06:03 Calcium 8.7 mg/dL (8.5-10.1) 06/18/20 06:03 Magnesium 2.3 mg/dL (1.8-2.4) 06/17/20 06:10 Albumin 2.2 g/dL (3.4-5.0) L 06/17/20 06:10 Prealbumin 18.9 mg/dL (20-40) L 06/17/20 06:10 Urine Color Yellow 06/11/20 20:12 Urine Appearance Clear 06/11/20 20:12 Urine pH 8.0 (5.0-7.0) H 06/11/20 20:12 Ur Specific [place] 1.015 (1.005-1.030) 06/11/20 20:12 Glucose (UA)(Auto) Negative (NEG) 06/11/20 20:12 Urine Ketones Negative (NEG) 06/11/20 20:12 Urine Blood Trace (NEG) H 06/11/20 20:12 Urine Nitrite Negative (NEG) 06/11/20 20:12 Urine Bilirubin Negative (NEG) 06/11/20 20:12 Urine Urobilinogen 1.0 mg/dL (0.2-1.0) 06/11/20 20:12 Ur Leukocyte Esterase 2+ (NEG) H 06/11/20 20:12 Urine RBC 5-10 /HPF (NONE SEEN) H 06/11/20 20:12 Urine WBC 10-20 /HPF (<5) H 06/11/20 20:12 Ur Squamous Epith Cells 5-10 /HPF (NONE SEEN) H 06/11/20 20:12 Urine Bacteria 20-50 /HPF (<20) H 06/11/20 20:12 Urine Mucus 1+ /HPF (NONE SEEN) 06/11/20 20:12 Urine Culture Reflexed Not needed 06/11/20 20:12 Urine Total Protein Trace (NEG) 06/11/20 20:12 SARS-CoV-2 RNA (RT-PCR) Negative (NEGATIVE) 06/17/20 16:00 Smear Scan Ok (OK) 06/17/20 06:10 Weight: 140 lb 8 oz Wound Present: No Closed Surgical Incision Present: No Negative Pressure Wound Therapy Present: No Physician Update: Labs reviewed and are stable. She is making fair overall progress with therpy. However, she scored 18/20 on the MMSE, consistent with moderate dementia. She will require someone to provide assistance for safety awareness. Comment: No skin breakdown Functional Improvement: pt has improved her functional performance; however, a lack of motivation and willingness to participate when fatigued has hindered her overall improvement. pt demands to get back into bed after therapy sessions. pt is not safe to discharge home by herself. 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 Please see the Rehabilitation Signature page for all necessary signatures.
--- NOTE | 2020-06-18 10:51 | PN ---
Date of Progress Note: 06/18/2020 Subjective: The patient was seen this morning for followup. No new complaints, problems reported by the patient. She was lying in bed not in distress. Objective: Vital Signs: Reviewed. HEENT: Unremarkable. Lungs: Clear to auscultation. Heart: Sounds normal. Abdomen: Soft. Bowel sounds normal. No guarding, rigidity, tenderness, distention. Extremities: Bilateral leg edema unchanged. Laboratory Data: Sodium 143, potassium 5.2, chloride 108, bicarb 35, BUN 24, creatinine 0.68, glucos e 94. Impression: 1.Hyperkalemia. 2.Chronic respiratory failure with hypercapnia and hypoxia. 3.Chronic obstructive pulmonary disease. 4.Leg edema. 5.Right-sided heart failure. Plan: We will continue current diuretic, which is acetazolamide. Continue current nebulizer treatme nt and Lovenox for DVT prophylaxis. Continue current prednisone. The patient was encouraged to cont inue to use her BiPAP at nighttime and we will continue to follow with Dr. Thomas who will make dec ision regarding setting up for outpatient noninvasive ventilator. For her high potassium, we will gi ve her 1 dose of Kayexalate. ANGELICA/MODL Voice ID: [id number] Report ID: [id number]
[2020-06-18] MEDS: LIDOCAINE 4% PATCH TOP SCH (11:08)
--- NOTE | 2020-06-18 13:12 | P.PN ---
Subjective Date of Service: 06/18/20 Chief Complaint: Respiratory failure Subjective: Improving (Patient is doing much better less confused oxygenation satisfactory) Review of Systems General: Weakness Respiratory: Shortness of Breath Physical Examination - Vital Signs Temperature: 98.1 F Blood Pressure: 108/47 Pulse: 60 Respirations: 18 Pulse Ox (%): 96 - Studies Laboratory Data (last 24 hrs) 06/18/20 06:03: Sodium 143, Potassium 5.2 H, BUN 24 H, Creatinine 0.68, Glucose 94 Assessment & Plan - Problems (Diagnosis) (1) Cor pulmonale (chronic) Current Visit: Yes Status: Acute Plan: Condition is improving noninvasive ventilator ordered continue with Diamox and prednisone titrate O2 to a sat of 90% (2) Chronic respiratory failure Current Visit: Yes Status: Acute Plan: Patient has chronic respiratory failure and will benefit from a noninvasive ventilator to prevent Re admissions to the hospital BiPAP therapy is not suitable due to the severity of patient's condition no history of obstructive sleep apnea patient has severe cor pulmonale vital signs are stable continue with Diamox Dc antibiotics reduce dose of prednisone great sat to 88-90% discuss with the nurse present at the bedside I have ordered a noninvasive ventilator for the patient Qualifiers: Respiratory failure complication: hypoxia and hypercapnia Qualified Code(s): J96.11 - Chronic respiratory failure with hypoxia; J96.12 - Chronic respiratory failure with hypercapnia
[2020-06-18] MEDS: ALBUTEROL 2.5 MG/3 ML NEB SOL NEB PRN (14:20)
[2020-06-18] MEDS: atenoloL 25 MG TAB PO SCH (19:07)
[2020-06-18] MEDS: ATORVASTATIN 80 MG TAB PO SCH (19:09)
[2020-06-18] MEDS: TRAZODONE 50 MG TABLET PO PRN (20:06)
[2020-06-18] MEDS: MELATONIN 3 MG TABLET PO PRN (20:07)
[2020-06-19] MEDS: IPRATROPIUM BROM 0.5MG/2.5ML NEB SCH ×4 (02:10→21:00)
[2020-06-19] MEDS: ENOXAPARIN 40 MG/0.4 ML SQ SCH (07:09)
[2020-06-19] MEDS: CRANBERRY FRUIT EXTRACT 200 MG CAP PO SCH ×2 (08:46→19:13)
[2020-06-19] MEDS: acetaZOLAMIDE 250 MG TAB PO SCH ×2 (08:47→19:13)
[2020-06-19] MEDS: ACETAMINOPHEN 500 MG TAB PO PRN (08:47)
[2020-06-19] MEDS: DULOXETINE 20 MG CAP PO SCH (08:47)
[2020-06-19] MEDS: ASPIRIN EC 81 MG TAB PO SCH (08:47)
[2020-06-19] MEDS: CLOPIDOGREL 75 MG TABLET PO SCH (08:47)
[2020-06-19] MEDS: LIDOCAINE 4% PATCH TOP SCH (08:48)
[2020-06-19] MEDS: ALBUTEROL 2.5 MG/3 ML NEB SOL NEB PRN ×2 (09:10→14:00)
[2020-06-19] MEDS: ARFORMOTEROL TARTRATE 15 MCG/2 ML VIAL.NEB NEB SCH ×2 (09:10→21:00)
[2020-06-19] MEDS: ENSURE HIGH PROTEIN 237 ML CAN PO SCH ×2 (12:03→19:14)
--- NOTE | 2020-06-19 12:04 | PN ---
Date of Progress Note: 06/19/2020 Subjective: The patient was seen this morning for followup. No new complaints, problems reported by patient. She was sitting in the wheelchair. Denied any complaints. Objective: Vital Signs: Reviewed. HEENT: Unremarkable. Lungs: Clear to auscultation. Good equal entry in the upper part, diminished air entry in the lower lung region. Heart: Sounds normal. Abdomen: Soft. Bowel sounds normal. No guarding, rigidity, tenderness, or distention. Extremities: Leg edema present, unchanged. Impression: 1.Pulmonale. 2.Right-sided heart failure. 3.Chronic obstructive pulmonary disease. 4.Chronic respiratory failure with hypercapnia. Plan: We will go ahead and continue current medication. The patient was encouraged to continue to u se her BiPAP as advised. Dr. Thomas has informed me that he has signed appropriate paperwork for h er to get noninvasive ventilator for home use upon discharge. We will continue physical therapy unde r guidance of Dr. Ontiveros. I will see her tomorrow for followup. ANGELICA/MODL Voice ID: [id number] Report ID: [id number]
[2020-06-19] MEDS: predniSONE 10 MG TAB PO SCH ×2 (12:43→19:13)
[2020-06-19] MEDS: TRAZODONE 50 MG TABLET PO PRN (19:13)
[2020-06-19] MEDS: ATORVASTATIN 80 MG TAB PO SCH (19:13)
[2020-06-19] MEDS: atenoloL 25 MG TAB PO SCH (19:13)
[2020-06-19] MEDS: MELATONIN 3 MG TABLET PO PRN (21:00)
[2020-06-20] MEDS: IPRATROPIUM BROM 0.5MG/2.5ML NEB SCH ×4 (02:50→19:30)
[2020-06-20] MEDS: ENOXAPARIN 40 MG/0.4 ML SQ SCH (08:21)
[2020-06-20] MEDS: predniSONE 10 MG TAB PO SCH ×2 (08:22→20:04)
[2020-06-20] MEDS: acetaZOLAMIDE 250 MG TAB PO SCH ×2 (08:22→20:04)
[2020-06-20] MEDS: DULOXETINE 20 MG CAP PO SCH (08:22)
[2020-06-20] MEDS: CRANBERRY FRUIT EXTRACT 200 MG CAP PO SCH ×2 (08:22→20:05)
[2020-06-20] MEDS: ASPIRIN EC 81 MG TAB PO SCH (08:22)
[2020-06-20] MEDS: LIDOCAINE 4% PATCH TOP SCH (08:23)
[2020-06-20] MEDS: CLOPIDOGREL 75 MG TABLET PO SCH (08:24)
[2020-06-20] MEDS: ARFORMOTEROL TARTRATE 15 MCG/2 ML VIAL.NEB NEB SCH ×2 (09:05→19:30)
[2020-06-20] MEDS: ENSURE HIGH PROTEIN 237 ML CAN PO SCH ×2 (10:51→20:00)
--- NOTE | 2020-06-20 10:59 | PN ---
Date of Progress Note: 06/20/2020 Subjective: The patient was seen this morning for followup. No new complaints or problems reported by her, lying in bed, not in distress. She is using her BiPAP off and on during nighttime as reporte d by nursing staff. Objective: Vital signs: Reviewed. HEENT: Unremarkable. Lungs: Bilateral good equal entry with diminished air entry in the lower lung. Not in any respirato ry distress. Heart: Sounds normal. Abdomen: Soft. Bowel sounds normal. No guarding, rigidity, tenderness, or distention. Extremities: Bilateral trace leg edema. Overall it is much better than what it was before. Impression: 1.Chronic obstructive pulmonary disease. 2.Chronic respiratory failure with hypercapnia and hypoxia. 3.Generalized weakness. 4.Cor pulmonale. 5.Right-sided heart failure. Plan: We will go ahead and get a chest x-ray today for followup on her pleural effusion problem. Co ntinue current medications. We will continue current prednisone, nebulizer treatment, oxygen, BiPAP therapy, and physical therapy under guidance of Dr. Ontiveros. The patient will have home oxygen and noninvasive ventilator, which is ordered by Dr. Thomas. ANGELICA/MODL Voice ID: [id number] Report ID: [id number]
--- NOTE | 2020-06-20 12:03 | RAD REPORT ---
EXAM DESCRIPTION: RAD - Chest Single View - 06/20/2020 11:46 am CLINICAL HISTORY: pleural effusion COMPARISON: Portable June 13 TECHNIQUE: AP portable chest image was obtained 06/20/2020 11:46 am . FINDINGS: Bilateral lung parenchymal interstitial and alveolar opacities are present with bilateral pleural effusions. Findings have improved from June 13 no significant pleural and parenchymal dis ease remains. Heart size is upper normal and stable. No pneumothorax. IMPRESSION: The pulmonary edema pattern and bilateral pleural effusions are minimally improved from June 13. Significant disease remains.
[2020-06-20] MEDS: ALBUTEROL 2.5 MG/3 ML NEB SOL NEB PRN (14:40)
[2020-06-20] MEDS: ATORVASTATIN 80 MG TAB PO SCH (20:04)
[2020-06-20] MEDS: atenoloL 25 MG TAB PO SCH (20:04)
[2020-06-20] MEDS: TRAZODONE 50 MG TABLET PO PRN (20:05)
[2020-06-20] MEDS: MELATONIN 3 MG TABLET PO PRN (20:05)
[2020-06-21] MEDS: IPRATROPIUM BROM 0.5MG/2.5ML NEB SCH ×4 (01:40→21:25)
[2020-06-21 06:26] LABS: BUN Blood Urea Nitrogen 18 mg/dL (7-18); Bicarbonate 30 mmol/L (21-32); Glucose Level 94 mg/dL (74-106); Potassium 4.1 mmol/L (3.5-5.1); Sodium Level 143 mmol/L (136-145)
[2020-06-21] MEDS: ENOXAPARIN 40 MG/0.4 ML SQ SCH (07:17)
[2020-06-21] MEDS: ENSURE HIGH PROTEIN 237 ML CAN PO SCH ×2 (07:55→20:46)
[2020-06-21] MEDS: DULOXETINE 20 MG CAP PO SCH (07:55)
[2020-06-21] MEDS: predniSONE 10 MG TAB PO SCH ×2 (07:55→20:45)
[2020-06-21] MEDS: CLOPIDOGREL 75 MG TABLET PO SCH (07:56)
[2020-06-21] MEDS: acetaZOLAMIDE 250 MG TAB PO SCH ×2 (07:56→20:45)
[2020-06-21] MEDS: CRANBERRY FRUIT EXTRACT 200 MG CAP PO SCH ×2 (07:56→20:44)
[2020-06-21] MEDS: ASPIRIN EC 81 MG TAB PO SCH (07:56)
[2020-06-21] MEDS: ARFORMOTEROL TARTRATE 15 MCG/2 ML VIAL.NEB NEB SCH ×2 (08:55→21:25)
[2020-06-21] MEDS: LIDOCAINE 4% PATCH TOP SCH (10:54)
--- NOTE | 2020-06-21 17:27 | R.PN ---
PROGRESS NOTES ENCOUNTER DATE AND TIME: 06/21/2020 17:12 (SEO INTERN) NAME DANY STARK DATE OF : 1945 DATE OF ADMISSION: 06/11/2020 13:39 (SEO INTERN) CHF, respiratory failure, COPDCHIEF COMPLAINT: CHF, COPD, debility SUBJECTIVE: Pt denied any depression. Pt denied any Shortness of Breath. She reports mild SOB with decreased O2 sat when ambulating. She has O2 via nasal cannula. She is mookie ng good overall progress with all therapy. Labs reviewed and are stable. WBC 6.3, Hgb 12.8, Obstetrics And Gynecology Professor 0.55, prealbumin 18.9. Ambulated 500' with independence using a rolling waker. VITAL SIGNS Temperature: 97.4 F SBP/DBP: 119/57 Pulse: 53 Resp: 18 MEDICATION ALLERGIES: No Known Drug Allergies (NKDA) ENVIRONMENTAL ALLERGIES: - Substance Allergies None Known - Other Allergies None Known NURSING: - Shower allowing shower ACTIVITIES OOB only with supervision THERAPIES: - Dietary and Nutrition Adequate Nutrition. Nutritional Education. Nutritional Supplements. PHYSICAL EXAM - Gen Alert and awake Lying in bed No apparent distress Oriented to: person, time, and place - Skin No skin breakdown. Normacephalic - Eyes No abnormalities - ENMT No abnormalities - Neck No abnormalities No cervical adenopathy - CVS RRR - Chest Mildly decreased breath sounds bilaterally. - Resp No wheezing - Abd Soft - GI Non distended Deferred - No abnormalities - Ext Mild bilateral lower extremity edema. - MSK 4+/5 weakness in both lower extremities. Back muscle spasms. - Neuro 4/5 strength bilaterally upper and lower extremities. - Psych No abnormalities ASSESSMENT: Pt. is a 75 yo Right-handed female of unknown race.On 06/06/2020 she was admitted to [facility] with diagnosis CHF, respiratory failure, COPD.Her impairment category is Cardiac 09 - Cardia c Disorders ().Pre-morbidly, Pt. was independent/mod-I in Endurance, Communication, Self-Care, and Safety Awareness; and she had good Transfers Control and Social Cognition.Currently, she has deficits of Locomotion, Balance, Transfers Control, and Sphincter Control.Pt. is now referred to [facility] for acute in-patient rehabilitation in order to maximize patient's functional i ndependence in activities of daily living, strength, ROM, and mobility.- Rehab Goal Patient has realistic goal of being discharged at assistance level 7-Ind to reside at Home with Fami ly/Relatives. MDM/PLAN: - Balance for Weakness - Bed mobility for ADL deficits - Lymphedema Therapy for Edema - Physical Therapy Gait dysfunction - to improve, our physical therapists will perform initial evaluation of pt's statu s upon admission and devise an individualized program for Gait Training, and Wheel Chair mobility Inability to transfer - to improve, our physical therapists will perform initial evaluation of pt's status upon admission and devise an individualized program for Bed mobility Need for home safety evaluation - to improve, our physical therapists will perform initial evaluatio n of pt's status upon admission and devise an individualized program for Home Evaluation Need in caregiver upon discharge - to improve, our physical therapists will perform initial evaluati on of pt's status upon admission and devise an individualized program for Caregiver Training Edema - to improve, our physical therapists will perform initial evaluation of pt's status upon admi ssion and devise an individualized program for Elevation Training, and Lymphedema Therapy New precaution - to improve, our physical therapists will perform initial evaluation of pt's status upon admission and devise an individualized program for Patient precaution education Poor balance - to improve, our physical therapists will perform initial evaluation of pt's status up on admission and devise an individualized program for Balance Training Weakness - to improve, our physical therapists will perform initial evaluation of pt's status upon a dmission and devise an individualized program for Aquatic Therapy, Neuromuscular Reeducation, and Str engthening Achieving independence - to improve, our physical therapists will perform initial evaluation of pt's status upon admission and devise an individualized program for Community Reintegration Activities - Occupational Therapy Need for assurance services manager health care - to improve, our occupation therapists will perform initial evaluation of pt's status upon admission and devise an individualized program for Caregiver Training Weakness - to improve, our occupation therapists will perform initial evaluation of pt's status upon admission and devise an individualized program for Aquatic Therapy, Balance, Endurance, UE ROM, and UE strengthening - Other See attached MAR (Medication Administration Record) - Diet Type Start Regular - Diet - Liquid Texture Start Regular - Tube Feed Start N/A - Diet - Solid Texture Start Regular - Shower allowing shower FUNCTIONAL STATUS: UPDATED AT WEEKLY TEAM CONFERENCE - Bladder Same accident frequency: 7-Ind - No accidents in the past 7 days - Bowel Same accident frequency: 7-Ind - No accidents in the past 7 days - Walking Same score based on distance walked: 0(N/A) Same score based on distance walked: 2(50-149ft) - Wheelchair Same score based on distance traveled: 0(N/A) FUNCTIONAL STATUS: - Self-Care A. Eating Yoko B. Grooming Billie C. Bathing modA D. Dressing - Upper Billie E. Dressing - Lower modA F. Toileting Billie - Sphincter Control G. Bladder control Yoko H. Bowel control Yoko - Transfers Control I. Bed/Chair/Wheelchair Billie J. Toilet Billie K. Tub/Shower modA - Locomotion L. Walk/Wheelchair (B) modA M. Stairs ADNO - Communication N. Comprehension (B) sup O. Expression (B) sup - Social Cognition P. Social Interaction sup Q. Problem Solving sup R. Memory sup - Endurance Fair - Balance Poor - Safety Awareness Poor QI SCORES: - Self-Care A. Eating 03-Partial/moderate assistance B. Oral hygiene 02-Substantial/maximal assistance C. Toileting hygiene 02-Substantial/maximal assistance E. Shower/bathe self 02-Substantial/maximal assistance F. Upper body dressing 03-Partial/moderate assistance G. Lower body dressing 03-Partial/moderate assistance H. Putting on/taking off footwear 88-Not attempted due to medical condition or safety concerns - Mobility A. Roll left and right 03-Partial/moderate assistance B. Sit to lying 02-Substantial/maximal assistance C. Lying to sitting on side of bed 02-Substantial/maximal assistance D. Sit to stand 04-Supervision or touching assistance E. Chair/uff-pl-omgsw transfer 04-Supervision or touching assistance F. Toilet transfer 02-Substantial/maximal assistance G. Car transfer 88-Not attempted due to medical condition or safety concerns I. Walk 10 feet 04-Supervision or touching assistance J. Walk 50 feet with two turns 04-Supervision or touching assistance K. Walk 150 feet 88-Not attempted due to medical condition or safety concerns L. Walking 10 feet on uneven surfaces 88-Not attempted due to medical condition or safety concerns M. 1 step (curb) 88-Not attempted due to medical condition or safety concerns N. 4 steps 88-Not attempted due to medical condition or safety concerns O. 12 steps 88-Not attempted due to medical condition or safety concerns P. Picking up object 88-Not attempted due to medical condition or safety concerns R. Wheel 50 feet with two turns 02-Substantial/maximal assistance S. Wheel 150 feet 88-Not attempted due to medical condition or safety concerns - Bladder and Bowel Bladder continence Bowel continence - Endurance Fair - Balance Fair - Safety Awareness Fair CURRENT [facility]. DEFICITS: Self-Care, Mobility, Endurance, Balance, and Safety Awareness SIGNATURE PANEL: (SEO INTERN)
[2020-06-21] MEDS: ATORVASTATIN 80 MG TAB PO SCH (20:45)
[2020-06-21] MEDS: DOCUSATE NA/SENNA CONC 1 TAB PO PRN (20:45)
[2020-06-21] MEDS: TRAZODONE 50 MG TABLET PO PRN (20:46)
[2020-06-21] MEDS: atenoloL 25 MG TAB PO SCH (20:46)
[2020-06-21] MEDS: MELATONIN 3 MG TABLET PO PRN (20:47)
[2020-06-22] MEDS: IPRATROPIUM BROM 0.5MG/2.5ML NEB SCH ×4 (01:30→20:10)
[2020-06-22] MEDS: ENOXAPARIN 40 MG/0.4 ML SQ SCH (06:28)
--- NOTE | 2020-06-22 07:16 | PN ---
Date of Progress Note: 06/21/2020 Subjective: The patient was seen this morning for followup. No new complaints or problems reported by patient. Lying in bed, not in distress. Objective: Vital Signs: Reviewed. HEENT: Unremarkable. Lungs: Clear to auscultation. Heart: Sounds normal. Abdomen: Soft. Bowel sounds normal. No guarding, rigidity, tenderness, or distention. Extremities: Bilateral trace leg edema. Laboratory Data: Sodium 143, potassium 4.1, chloride 109, bicarb 30, BUN 18, creatinine 0.55, glucos e 94. Impression: 1.Chronic obstructive pulmonary disease. 2.Chronic respiratory failure with hypercapnia. 3.Leg edema. 4.Pleural effusion. Plan: We will continue current medications. Continue acetazolamide, steroid, oxygen nebulizer treat ment. Plan is for patient to go home tomorrow from rehab point of view and rehab is making arrangeme nts for patient to get noninvasive ventilator and home oxygen. The patient will also need a nebulize r machine and supply and nurse was advised to make arrangements for that. I will see her tomorrow. ANGELICA/MODL Voice ID: [id number] Report ID: [id number]
[2020-06-22] MEDS: CRANBERRY FRUIT EXTRACT 200 MG CAP PO SCH ×2 (08:02→20:15)
[2020-06-22] MEDS: CLOPIDOGREL 75 MG TABLET PO SCH (08:02)
[2020-06-22] MEDS: ASPIRIN EC 81 MG TAB PO SCH (08:02)
[2020-06-22] MEDS: acetaZOLAMIDE 250 MG TAB PO SCH ×2 (08:02→21:01)
[2020-06-22] MEDS: DULOXETINE 20 MG CAP PO SCH (08:02)
[2020-06-22] MEDS: predniSONE 10 MG TAB PO SCH ×2 (08:03→20:15)
[2020-06-22] MEDS: ENSURE HIGH PROTEIN 237 ML CAN PO SCH ×2 (08:03→20:53)
[2020-06-22] MEDS: ARFORMOTEROL TARTRATE 15 MCG/2 ML VIAL.NEB NEB SCH ×2 (08:30→20:10)
[2020-06-22] MEDS: LIDOCAINE 4% PATCH TOP SCH (10:29)
--- NOTE | 2020-06-22 18:26 | R.PN ---
PROGRESS NOTES ENCOUNTER DATE AND TIME: 06/22/2020 18:22 (HOSPITAL INSURANCE REPRESENTATIVE) NAME DANY STARK DATE OF : 1945 DATE OF ADMISSION: 06/11/2020 13:39 (HOSPITAL INSURANCE REPRESENTATIVE) CHF, respiratory failure, COPDCHIEF COMPLAINT: CHF, COPD, debility SUBJECTIVE: Pt denied any depression. Pt denied any Shortness of Breath. She reports mild SOB with decreased O2 sat when ambulating. She has O2 via nasal cannula. She is mookie ng good overall progress with all therapy. Labs reviewed and are stable. WBC 6.3, Hgb 12.8, Sterile Tech 0.55, prealbumin 18.9. Ambulated 350' with independence using a rolling walker. Up and down 10 steps with standby assistance . VITAL SIGNS Temperature: 97.5 F SBP/DBP: 133/69 Pulse: 55 Resp: 16 MEDICATION ALLERGIES: No Known Drug Allergies (NKDA) ENVIRONMENTAL ALLERGIES: - Substance Allergies None Known - Other Allergies None Known NURSING: - Shower allowing shower ACTIVITIES OOB only with supervision THERAPIES: - Dietary and Nutrition Adequate Nutrition. Nutritional Education. Nutritional Supplements. PHYSICAL EXAM - Gen Alert and awake Lying in bed No apparent distress Oriented to: person, time, and place - Skin No skin breakdown. Normacephalic - Eyes No abnormalities - ENMT No abnormalities - Neck No abnormalities No cervical adenopathy - CVS RRR - Chest Mildly decreased breath sounds bilaterally. - Resp No wheezing - Abd Soft - GI Non distended Deferred - No abnormalities - Ext Mild bilateral lower extremity edema. - MSK 4+/5 weakness in both lower extremities. Back muscle spasms. - Neuro 4/5 strength bilaterally upper and lower extremities. - Psych No abnormalities ASSESSMENT: Pt. is a 75 yo Right-handed female of unknown race.On 06/06/2020 she was admitted to [facility] with diagnosis CHF, respiratory failure, COPD.Her impairment category is Cardiac 09 - Cardia c Disorders ().Pre-morbidly, Pt. was independent/mod-I in Endurance, Communication, Self-Care, and Safety Awareness; and she had good Transfers Control and Social Cognition.Currently, she has deficits of Locomotion, Balance, Transfers Control, and Sphincter Control.Pt. is now referred to [facility] for acute in-patient rehabilitation in order to maximize patient's functional i ndependence in activities of daily living, strength, ROM, and mobility.- Rehab Goal Patient has realistic goal of being discharged at assistance level 7-Ind to reside at Home with Fami ly/Relatives. MDM/PLAN: - Balance for Weakness - Bed mobility for ADL deficits - Lymphedema Therapy for Edema - Physical Therapy Gait dysfunction - to improve, our physical therapists will perform initial evaluation of pt's statu s upon admission and devise an individualized program for Gait Training, and Wheel Chair mobility Inability to transfer - to improve, our physical therapists will perform initial evaluation of pt's status upon admission and devise an individualized program for Bed mobility Need for home safety evaluation - to improve, our physical therapists will perform initial evaluatio n of pt's status upon admission and devise an individualized program for Home Evaluation Need in caregiver upon discharge - to improve, our physical therapists will perform initial evaluati on of pt's status upon admission and devise an individualized program for Caregiver Training Edema - to improve, our physical therapists will perform initial evaluation of pt's status upon admi ssion and devise an individualized program for Elevation Training, and Lymphedema Therapy New precaution - to improve, our physical therapists will perform initial evaluation of pt's status upon admission and devise an individualized program for Patient precaution education Poor balance - to improve, our physical therapists will perform initial evaluation of pt's status up on admission and devise an individualized program for Balance Training Weakness - to improve, our physical therapists will perform initial evaluation of pt's status upon a dmission and devise an individualized program for Aquatic Therapy, Neuromuscular Reeducation, and Str engthening Achieving independence - to improve, our physical therapists will perform initial evaluation of pt's status upon admission and devise an individualized program for Community Reintegration Activities - Occupational Therapy Need for healthcare applications analyst - to improve, our occupation therapists will perform initial evaluation of pt's status upon admission and devise an individualized program for Caregiver Training Weakness - to improve, our occupation therapists will perform initial evaluation of pt's status upon admission and devise an individualized program for Aquatic Therapy, Balance, Endurance, UE ROM, and UE strengthening - Other See attached MAR (Medication Administration Record) - Diet Type Continue Regular - Diet - Liquid Texture Continue Regular - Tube Feed Continue N/A - Diet - Solid Texture Continue Regular - Shower allowing shower FUNCTIONAL STATUS: UPDATED AT WEEKLY TEAM CONFERENCE - Bladder Same accident frequency: 7-Ind - No accidents in the past 7 days - Bowel Same accident frequency: 7-Ind - No accidents in the past 7 days - Walking Same score based on distance walked: 0(N/A) Same score based on distance walked: 2(50-149ft) - Wheelchair Same score based on distance traveled: 0(N/A) FUNCTIONAL STATUS: - Self-Care A. Eating Yoko B. Grooming Billie C. Bathing modA D. Dressing - Upper Billie E. Dressing - Lower modA F. Toileting Billie - Sphincter Control G. Bladder control Yoko H. Bowel control Yoko - Transfers Control I. Bed/Chair/Wheelchair Billie J. Toilet Billie K. Tub/Shower modA - Locomotion L. Walk/Wheelchair (B) modA M. Stairs ADNO - Communication N. Comprehension (B) sup O. Expression (B) sup - Social Cognition P. Social Interaction sup Q. Problem Solving sup R. Memory sup - Endurance Fair - Balance Poor - Safety Awareness Poor QI SCORES: - Self-Care A. Eating 03-Partial/moderate assistance B. Oral hygiene 02-Substantial/maximal assistance C. Toileting hygiene 02-Substantial/maximal assistance E. Shower/bathe self 02-Substantial/maximal assistance F. Upper body dressing 03-Partial/moderate assistance G. Lower body dressing 03-Partial/moderate assistance H. Putting on/taking off footwear 88-Not attempted due to medical condition or safety concerns - Mobility A. Roll left and right 03-Partial/moderate assistance B. Sit to lying 02-Substantial/maximal assistance C. Lying to sitting on side of bed 02-Substantial/maximal assistance D. Sit to stand 04-Supervision or touching assistance E. Chair/sil-dc-xsuhc transfer 04-Supervision or touching assistance F. Toilet transfer 02-Substantial/maximal assistance G. Car transfer 88-Not attempted due to medical condition or safety concerns I. Walk 10 feet 04-Supervision or touching assistance J. Walk 50 feet with two turns 04-Supervision or touching assistance K. Walk 150 feet 88-Not attempted due to medical condition or safety concerns L. Walking 10 feet on uneven surfaces 88-Not attempted due to medical condition or safety concerns M. 1 step (curb) 88-Not attempted due to medical condition or safety concerns N. 4 steps 88-Not attempted due to medical condition or safety concerns O. 12 steps 88-Not attempted due to medical condition or safety concerns P. Picking up object 88-Not attempted due to medical condition or safety concerns R. Wheel 50 feet with two turns 02-Substantial/maximal assistance S. Wheel 150 feet 88-Not attempted due to medical condition or safety concerns - Bladder and Bowel Bladder continence Bowel continence - Endurance Fair - Balance Fair - Safety Awareness Fair CURRENT [facility]. DEFICITS: Self-Care, Mobility, Endurance, Balance, and Safety Awareness SIGNATURE PANEL: (HOSPITAL INSURANCE REPRESENTATIVE)
[2020-06-22] MEDS: ATORVASTATIN 80 MG TAB PO SCH (20:16)
[2020-06-22] MEDS: atenoloL 25 MG TAB PO SCH (20:16)
[2020-06-22] MEDS: MELATONIN 3 MG TABLET PO PRN (20:16)
[2020-06-23 05:32] VITALS: BMI 21.6
[2020-06-23] MEDS: ENOXAPARIN 40 MG/0.4 ML SQ SCH (07:13)
[2020-06-23 07:31] VITALS: BP 137/62; TEMP 97.6
[2020-06-23] MEDS: ENSURE HIGH PROTEIN 237 ML CAN PO SCH (08:00)
[2020-06-23] MEDS: ARFORMOTEROL TARTRATE 15 MCG/2 ML VIAL.NEB NEB SCH (08:02)
[2020-06-23] MEDS: IPRATROPIUM BROM 0.5MG/2.5ML NEB SCH (08:02)
--- NOTE | 2020-06-23 08:19 | PN ---
Date of Progress Note: 06/22/2020 Subjective: The patient was seen for followup this morning. No new complaints or problems reported. Lying in bed, not in any distress. Objective: Vital Signs: Reviewed. HEENT: Unremarkable. Lungs: Clear to auscultation except diminished air entry in the lower lung field. Heart: Sounds normal. Abdomen: Soft. Bowel sounds normal. No guarding, rigidity, tenderness, or distention. Extremities: Trace leg edema. Impression: 1.Chronic cor pulmonale. 2.Chronic obstructive pulmonary disease. 3.Chronic respiratory failure with hypercapnia. 4.Hypertension. 5.Generalized weakness. 6.Debility. Plan: The patient was going to be discharged today, but due to arrangements that needed to be comple matilda prior to discharge and rehab facility needs probably 1 extra day to finish this arrangements and hopefully we might be able to discharge her to go home tomorrow. I will see her in the morning for bianca wahl. ANGELICA/MODL Voice ID: [id number] Report ID: [id number]
--- NOTE | 2020-06-23 08:23 | DS ---
Date of Discharge: 06/22/2020 ANGELICA/MODL Voice ID: [id number] Report ID: [id number] MTDD
[2020-06-23] MEDS: CRANBERRY FRUIT EXTRACT 200 MG CAP PO SCH (08:24)
[2020-06-23] MEDS: ASPIRIN EC 81 MG TAB PO SCH (08:24)
[2020-06-23] MEDS: CLOPIDOGREL 75 MG TABLET PO SCH (08:24)
[2020-06-23] MEDS: ACETAMINOPHEN 500 MG TAB PO PRN (08:24)
[2020-06-23] MEDS: predniSONE 10 MG TAB PO SCH (08:24)
[2020-06-23] MEDS: DULOXETINE 20 MG CAP PO SCH (08:24)
[2020-06-23] MEDS: LIDOCAINE 4% PATCH TOP SCH (08:24)
[2020-06-23] MEDS: acetaZOLAMIDE 250 MG TAB PO SCH (09:16)
[2020-06-23 10:40] VITALS: O2SAT 99
--- NOTE | 2020-06-23 17:42 | R.PN ---
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 Pt denied any Shortness of Breath. She reports mild SOB with decreased O2 sat when ambulating. She has O2 via nasal cannula. She is mookie ng good overall progress with all therapy. Labs reviewed and are stable. WBC 6.3, Hgb 12.8, Adjunct Psychology Faculty Member 0.55, prealbumin 18.9, calcium 8.1. Ambulated 500' with independence using a rolling walker. Up and down 10 steps with standby assistance . She has done very well and will be discharged home today. VITAL SIGNS Temperature: 97.6 F SBP/DBP: 137/62 Pulse: 58 Resp: 16 MEDICATION ALLERGIES: No Known Drug Allergies (NKDA) ENVIRONMENTAL ALLERGIES: - Substance Allergies None Known - Other Allergies None Known NURSING: - Shower allowing shower ACTIVITIES OOB only with supervision THERAPIES: - Dietary and Nutrition Adequate Nutrition. Nutritional Education. Nutritional Supplements. PHYSICAL EXAM - Gen Alert and awake Lying in bed No apparent distress Oriented to: person, time, and place - Skin No skin breakdown. Normacephalic - Eyes No abnormalities - ENMT No abnormalities - Neck No abnormalities No cervical adenopathy - CVS RRR - Chest Mildly decreased breath sounds bilaterally. - Resp No wheezing - Abd Soft - GI Non distended Deferred - No abnormalities - Ext Mild bilateral lower extremity edema. - MSK 4+/5 weakness in both lower extremities. Back muscle spasms. - Neuro 4/5 strength bilaterally upper and lower extremities. - Psych No abnormalities ASSESSMENT: Pt. is a 75 yo Right-handed female of unknown race.On 06/06/2020 she was admitted to [facility] with diagnosis CHF, respiratory failure, COPD.Her impairment category is Cardiac 09 - Cardia c Disorders ().Pre-morbidly, Pt. was independent/mod-I in Endurance, Communication, Self-Care, and Safety Awareness; and she had good Transfers Control and Social Cognition.Currently, she has deficits of Locomotion, Balance, Transfers Control, and Sphincter Control.Pt. is now referred to [facility] for acute in-patient rehabilitation in order to maximize patient's functional i ndependence in activities of daily living, strength, ROM, and mobility.- Rehab Goal Patient has realistic goal of being discharged at assistance level 7-Ind to reside at Home with Fami ly/Relatives. MDM/PLAN: - Balance for Weakness - Bed mobility for ADL deficits - Lymphedema Therapy for Edema - Physical Therapy Gait dysfunction - to improve, our physical therapists will perform initial evaluation of pt's statu s upon admission and devise an individualized program for Gait Training, and Wheel Chair mobility Inability to transfer - to improve, our physical therapists will perform initial evaluation of pt's status upon admission and devise an individualized program for Bed mobility Need for home safety evaluation - to improve, our physical therapists will perform initial evaluatio n of pt's status upon admission and devise an individualized program for Home Evaluation Need in caregiver upon discharge - to improve, our physical therapists will perform initial evaluati on of pt's status upon admission and devise an individualized program for Caregiver Training Edema - to improve, our physical therapists will perform initial evaluation of pt's status upon admi ssion and devise an individualized program for Elevation Training, and Lymphedema Therapy New precaution - to improve, our physical therapists will perform initial evaluation of pt's status upon admission and devise an individualized program for Patient precaution education Poor balance - to improve, our physical therapists will perform initial evaluation of pt's status up on admission and devise an individualized program for Balance Training Weakness - to improve, our physical therapists will perform initial evaluation of pt's status upon a dmission and devise an individualized program for Aquatic Therapy, Neuromuscular Reeducation, and Str engthening Achieving independence - to improve, our physical therapists will perform initial evaluation of pt's status upon admission and devise an individualized program for Community Reintegration Activities - Occupational Therapy Need for hospice care sales consultant - to improve, our occupation therapists will perform initial evaluation of pt's status upon admission and devise an individualized program for Caregiver Training Weakness - to improve, our occupation therapists will perform initial evaluation of pt's status upon admission and devise an individualized program for Aquatic Therapy, Balance, Endurance, UE ROM, and UE strengthening - Other See attached MAR (Medication Administration Record) - Diet Type Continue Regular - Diet - Liquid Texture Continue Regular - Tube Feed Continue N/A - Diet - Solid Texture Continue Regular - Shower allowing shower FUNCTIONAL STATUS: UPDATED AT WEEKLY TEAM CONFERENCE - Bladder Same accident frequency: 7-Ind - No accidents in the past 7 days - Bowel Same accident frequency: 7-Ind - No accidents in the past 7 days - Walking Same score based on distance walked: 0(N/A) Same score based on distance walked: 2(50-149ft) - Wheelchair Same score based on distance traveled: 0(N/A) FUNCTIONAL STATUS: - Self-Care A. Eating Yoko B. Grooming Billie C. Bathing modA D. Dressing - Upper Billie E. Dressing - Lower modA F. Toileting Billie - Sphincter Control G. Bladder control Yoko H. Bowel control Yoko - Transfers Control I. Bed/Chair/Wheelchair Billie J. Toilet Billie K. Tub/Shower modA - Locomotion L. Walk/Wheelchair (B) modA M. Stairs ADNO - Communication N. Comprehension (B) sup O. Expression (B) sup - Social Cognition P. Social Interaction sup Q. Problem Solving sup R. Memory sup - Endurance Fair - Balance Poor - Safety Awareness Poor QI SCORES: - Self-Care A. Eating 03-Partial/moderate assistance B. Oral hygiene 02-Substantial/maximal assistance C. Toileting hygiene 02-Substantial/maximal assistance E. Shower/bathe self 02-Substantial/maximal assistance F. Upper body dressing 03-Partial/moderate assistance G. Lower body dressing 03-Partial/moderate assistance H. Putting on/taking off footwear 88-Not attempted due to medical condition or safety concerns - Mobility A. Roll left and right 03-Partial/moderate assistance B. Sit to lying 02-Substantial/maximal assistance C. Lying to sitting on side of bed 02-Substantial/maximal assistance D. Sit to stand 04-Supervision or touching assistance E. Chair/wcp-hk-oamwv transfer 04-Supervision or touching assistance F. Toilet transfer 02-Substantial/maximal assistance G. Car transfer 88-Not attempted due to medical condition or safety concerns I. Walk 10 feet 04-Supervision or touching assistance J. Walk 50 feet with two turns 04-Supervision or touching assistance K. Walk 150 feet 88-Not attempted due to medical condition or safety concerns L. Walking 10 feet on uneven surfaces 88-Not attempted due to medical condition or safety concerns M. 1 step (curb) 88-Not attempted due to medical condition or safety concerns N. 4 steps 88-Not attempted due to medical condition or safety concerns O. 12 steps 88-Not attempted due to medical condition or safety concerns P. Picking up object 88-Not attempted due to medical condition or safety concerns R. Wheel 50 feet with two turns 02-Substantial/maximal assistance S. Wheel 150 feet 88-Not attempted due to medical condition or safety concerns - Bladder and Bowel Bladder continence Bowel continence - Endurance Fair - Balance Fair - Safety Awareness Fair CURRENT [facility]. 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
--- NOTE | 2020-06-28 04:19 | DS ---
Date of Discharge: 06/23/2020 Disposition: Discharged to go home. Physical Examination: HEENT: Unremarkable. Lungs: Clear to auscultation with diminished air entry in the lower lung region, overall better than before. Not using accessory muscles of respiration. Heart: Sounds normal. Abdomen: Soft. Bowel sounds normal. No guarding, rigidity, tenderness, or distention. Extremities: Trace leg edema. Laboratory Data: Upon admission on 06/12/2020; white count 4.7, hemoglobin 12.5, platelets 139. Last CBC from 06/17/2020; WBC was 6.3, hemoglobin 12.8, and platelets 170. Last chemistry from yesterday; sodium 143, potassium 4.1, chloride 109, bicarb 30, BUN 18, creatinine 0.55, glucose 94. Potassium was 5.2 on 06/18/2020 and the patient received 1 dose of Kayexalate for correction. Hospital Course: This is a 75-year-old pleasant female patient, who was admitted to the hospital to rehab floor from the medical floor. Please see dictated H and P from on medical floor admission for more details along with discharge summary. The patient admitted to the rehab and she received physical therapy under guidance of Dr. Ontiveros. She received acetazolamide as diuretic therapy. The patient has chronic respiratory failure with hypercapnia and Dr. Thomas made arrangements for her to be a noninvasive ventilator as well as she did qualify for home oxygen, so arrangements were made for home oxygen use as well. The patient received nebulizer treatment and steroids during this hospital stay. Her overall condition has improved. Chest x-ray was repeated which shows the patient still has bilateral pleural effusion, but it is better than before. The patient was still smoking until this admission and I have encouraged her to quit smoking completely. She was instructed to use her noninvasive ventilator every night and p.r.n. during daytime. Overall condition has improved and she was discharged in stable condition today with following discharge medication instructions. Final Diagnoses: 1. Chronic respiratory failure with hypercapnia. 2. Chronic obstructive pulmonary disease. 3. Pleural effusion. 4. Severe pulmonary hypertension. 5. Cor pulmonale, chronic. 6. Hypertension. 7. Hyperlipidemia. 8. Peripheral vascular disease. 9. Renal artery stenosis. 10. Osteoarthritis, multiple sites. 11. Osteopenia. Discharge Medications And Instructions: Continue all prior home medications except stop amlodipine. Take new medications: 1. Trelegy inhaler 1 puff daily, rinse mouth with water after each use. 2. Acetazolamide 250 mg by mouth 2 times a day. 3. Albuterol nebulizer treatment 4 times a day as needed for shortness of breath. 4. Prednisone 10 mg p.o. daily. 5. Duloxetine 30 mg p.o. daily. 6. Follow up at my office on , call office for appointment. 7. Use noninvasive ventilator every night and p.r.n. during daytime. 8. Use oxygen 2 L/minute per nasal cannula as prescribed. ANGELICA/MODL Voice ID: [id number] Report ID: [id number] MTDD
--- NOTE | 2020-07-02 18:38 | R.DS ---
DISCHARGE SUMMARY FACILITY [facility] MR# [id number] NAME ANGELA STARK ADDRESS [address] [place] [address] [place] [address] [address] [id number] PHONE DATE OF 1945 AGE 75 SSN# [id number] GENDER Female DEXTERITY Right-handed MAR[place] STATUS RACE Unknown race ENCOUNTER PHYSICIAN Dr. Michael Ontiveros M.D. REFERRING DOCTOR REFERRING FACILITY [facility] PRIMARY CARE PHYSICIAN DISCHARGE DIAGNOSIS: - Cardiac 09 - Cardiac Disorders (09) CHF, respiratory failure, COPD. 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 NURSING: - Shower allowing shower ACTIVITIES OOB only with supervision THERAPIES: - Dietary and Nutrition Adequate Nutrition Nutritional Education Nutritional Supplements HISTORY OF PRESENT ILLNESS: Pt. is a 75 yo Right-handed female of unknown race.On 06/06/2020 she was admitted to [facility] with diagnosis CHF.Her impairment category is Cardiac 09 - Cardiac Disorders ().Pre-morbid ly, Pt. was independent/mod-I in Endurance, Communication, Self-Care, and Safety Awareness; and she h ad good Transfers Control and Social Cognition.Currently, she has deficits of Locomotion, Balance, Tr ansfers Control, and Sphincter Control.Pt. is now referred to [facility] for a cute in-patient rehabilitation in order to maximize patient's functional independence in activities o f daily living, strength, ROM, and mobility.- Rehab Goal Patient has realistic goal of being discharged at assistance level 7-Ind to reside at Home with Fami ly/Relatives. Angela Stark is a 75 year- old female that lives at home independently. She lives in a single story home with family help when needed. She has a history of COPD, CVA,CAD,PCI,HTN, Dyslipidemia, and insomnia. She came into the emergency room with 2 weeks history of shortness of breath and leg swelling. After being amitted to the hospital, she was started on bipap because of her acute respiratory failure and after doing blood gas that showed oxygen was elevated catbon dioxide. The patient would most definitely benefit from acute inpatient rehab and has become severely debilitated and unable to live at her prior level of activity at home getting her stronger to be back living at home independently is our goal. It is reasonable and necessary for the patient to come to acute inpatient rehab for approximately 7-10 days in order to return to her prior level of care. She is now being transferred to [facility] In[facility] rehabilitation and is medically stable with relatively stable labs. She is now medically stable but in need of 24 hour nursing, doctor supervision and oversight while receiving active and ongoing intensive (PT, OT therapy a day/15 hours per week and receive care with intensive interdisciplinary approach. COVID-19 screening performed; spoke with patient via phone. Patient denies new onset of fever, cough, difficulty breathing, sore throat, body aches and non-allergy nasal congestion in the past 24 hours. Patient denies travel outside of [place] in the past 14 days. Patient denies any contact with someone who has a confirmed diagnosis of or is under investigation for COVID-19 in the past 14 days. Patient has been tested negative for COVID- 19.HOSPITAL COURSE: DIET - LIQUID TEXTURE: On 06/11/2020 Pt was upgraded to Regular Diet - Liquid Texture. DIET - SOLID TEXTURE: On 06/11/2020 Pt was upgraded to Regular Diet - Solid Texture. DIET TYPE: On 06/11/2020 Pt was upgraded to Regular Diet Type. TUBE FEED: On 06/11/2020 Pt was changed to N/A Tube Feed. DISCHARGE PHYSICAL EXAM - Gen Alert and awake Lying in bed No apparent distress Oriented to: person, time, and place - Skin No skin breakdown. Normacephalic - Eyes No abnormalities - ENMT No abnormalities - Neck No abnormalities No cervical adenopathy - CVS RRR - Chest Mildly decreased breath sounds bilaterally. - Resp No wheezing - Abd Soft - GI Non distended Deferred - No abnormalities - Ext Mild bilateral lower extremity edema. - MSK 4+/5 weakness in both lower extremities. Back muscle spasms. - Neuro 4/5 strength bilaterally upper and lower extremities. - Psych No abnormalities FUNCTIONAL STATUS: - Self-Care A. Eating 6-Yoko B. Grooming 6-Yoko C. Bathing 6-Yoko D. Dressing - Upper 4-Billie E. Dressing - Lower 6-Yoko F. Toileting 6-Yook - Sphincter Control G. Bladder control 6-Yoko H. Bowel control 6-Yoko - Transfers Control I. Bed/Chair/Wheelchair 6-Yoko J. Toilet 6-Yoko K. Tub/Shower 6-Yoko - Locomotion L. Walk/Wheelchair (B) 6-Yoko M. Stairs 5-sup - Communication N. Comprehension (B) 6-Yoko O. Expression (B) 6-Yoko - Social Cognition P. Social Interaction 6-Yoko Q. Problem Solving 6-Yoko R. Memory 6-Yoko - Endurance Good - Balance Good - Safety Awareness Good QI SCORES: - Self-Care A. Eating 03-Partial/moderate assistance B. Oral hygiene 02-Substantial/maximal assistance C. Toileting hygiene 02-Substantial/maximal assistance E. Shower/bathe self 02-Substantial/maximal assistance F. Upper body dressing 03-Partial/moderate assistance G. Lower body dressing 03-Partial/moderate assistance H. Putting on/taking off footwear 88-Not attempted due to medical condition or safety concerns - Mobility A. Roll left and right 03-Partial/moderate assistance B. Sit to lying 02-Substantial/maximal assistance C. Lying to sitting on side of bed 02-Substantial/maximal assistance D. Sit to stand 04-Supervision or touching assistance E. Chair/htu-cb-hnlhv transfer 04-Supervision or touching assistance F. Toilet transfer 02-Substantial/maximal assistance G. Car transfer 88-Not attempted due to medical condition or safety concerns I. Walk 10 feet 04-Supervision or touching assistance J. Walk 50 feet with two turns 04-Supervision or touching assistance K. Walk 150 feet 88-Not attempted due to medical condition or safety concerns L. Walking 10 feet on uneven surfaces 88-Not attempted due to medical condition or safety concerns M. 1 step (curb) 88-Not attempted due to medical condition or safety concerns N. 4 steps 88-Not attempted due to medical condition or safety concerns O. 12 steps 88-Not attempted due to medical condition or safety concerns P. Picking up object 88-Not attempted due to medical condition or safety concerns R. Wheel 50 feet with two turns 02-Substantial/maximal assistance S. Wheel 150 feet 88-Not attempted due to medical condition or safety concerns - Bladder and Bowel Bladder continence Bowel continence - Endurance Fair - Balance Fair - Safety Awareness Fair DISCHARGE INSTRUCTIONS: - N/A Lovenox 40 mg sq daily, aspirin 81 mg, Plavix 75 mg daily. DISCHARGE PLAN, FOLLOW UP CARE PROVISIONS: - Estimated Length of Stay (days) 10. - Consensus on plan Discharge plan has been discussed with primary caregiver. Patient/Family is in agreement with the donavan n. Primary caregiver is in agreement with the plan. - Patient/Family Goals Return home independently. - Planned Living Setting Upon Discharge Home, to live with Family/Relatives. Transitional Living. 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
== END 2020-06-23 16:15 | disposition home health service (06) | DRG 947 ==
LOC: 5TH 13:39
PROVIDERS: ADMIT Psychiatry & Neurology Neurology with Special Qualifications in Child Neurology; ATTEND Psychiatry & Neurology Neurology with Special Qualifications in Child Neurology
PROC: 5A09557 Assistance with Respiratory Ventilation, Greater than 96 Consecutive Hours, Continuous Positive Airway Pressure (ICD-10-PCS; principal; 2020-06-19)
DX: R53.81 Other malaise (principal); J96.01 Acute respiratory failure with hypoxia; J96.02 Acute respiratory failure with hypercapnia; G93.41 Metabolic encephalopathy; J44.1 Chronic obstructive pulmonary disease with (acute) exacerbation; E46 Unspecified protein-calorie malnutrition; J90 Pleural effusion, not elsewhere classified; I25.10 Atherosclerotic heart disease of native coronary artery without angina pectoris; E78.5 Hyperlipidemia, unspecified; M19.90 Unspecified osteoarthritis, unspecified site; I11.0 Hypertensive heart disease with heart failure; I50.810 Right heart failure, unspecified; E87.5 Hyperkalemia; I73.9 Peripheral vascular disease, unspecified; I27.20 Pulmonary hypertension, unspecified; I70.1 Atherosclerosis of renal artery; M85.80 Other specified disorders of bone density and structure, unspecified site; R60.0 Localized edema; Z86.73 Personal history of transient ischemic attack (TIA), and cerebral infarction without residual deficits; Z68.21 Body mass index [BMI] 21.0-21.9, adult; Z23 Encounter for immunization; Z20.822 Contact with and (suspected) exposure to COVID-19
CPT/HCPCS: 36415; 71045; 80048; 81001; 82040; 83735; 84134; 85025; 87086; 87088; 92523; 94640; 94660; 94760; 97110; 97116; 97127; 97162; 97530; 97542; J0696; J1650; J7512; J7605; U0003

== ENCOUNTER → 2023-11-28 | Day surgery (SDC) | payer OTHER ==
[2023-11-27 09:23] LABS: Absolute Eosinophils 0.1 K/uL (0-0.5); Absolute Lymphocytes (CBC) 1.2 K/uL (0.7-4.9); Absolute Monocytes 0.5 K/uL (0.1-1.3); Absolute Neutrophil 5.3 K/uL (1.8-8.0); Basophils % 0.6 % (0-1.3); Eosinophils % 1.2 % (0-4.4); Hematocrit 45.4 % (36.0-45.0); Hemoglobin 15.1 g/dL (12.0-15.0); Lymphocytes % 17.2 % (15.3-44.8); MCH 32.1 pg (27.0-35.0); MCHC 33.2 g/dL (32.0-36.0); MCV 96.6 fL (80-100); MPV 8.9 fL (7.6-11.3); Monocytes % 6.4 % (3.3-12.3); Neutrophils % 74.6 % (41.7-73.7); Platelets 203 thou/uL (152-406); Red Cell Distribution Width 14.4 % (12.1-15.2)
--- NOTE | 2023-11-27 09:34 | RAD REPORT ---
EXAM DESCRIPTION: RAD - Chest Pa And Lat (2 Views) - 11/27/2023 9:26 am CLINICAL HISTORY: pre op Chest pain. COMPARISON: Chest Single View dated 06/20/2020; Chest Single View dated 06/13/2020; Chest Single View dated 06/06/2020; Chest Pa And Lat (2 Views) dated 05/16/2017 TECHNIQUE: PA and lateral views of the chest were obtained. FINDINGS: The lungs are hyperexpanded compatible with COPD. The heart is upper limit of normal in si ze. No fracture or aggressive bony process. IMPRESSION: COPD without acute process identified. The USPSTF recommends annual screening for lung cancer with low-dose CT (LDCT) in adults aged 50 to 80 years who have a 20 pack-year smoking history and currently smoke or have quit within the past 15 years.
[2023-11-27 09:39] LABS: Anion Gap 7.2 mEq/L (5.0-15.0); Potassium 5.2 mEq/L (3.5-5.1)
[2023-11-27 09:47] LABS: PT Prothrombin Time 11.7 SECONDS (9.4-12.5); Protime INR 1.05
--- NOTE | 2023-11-27 13:46 | EKG ---
Test Date: 2023-11-27 Test Time: 09:09:03 Refinish Technician: ROQUE MEASUREMENT RESULTS: Intervals: Rate: 62 VA: 140 QRSD: 88 QT: 374 QTc: 379 [place]: P: 78 VA: 140 QRS: 84 T: 80 INTERPRETIVE STATEMENTS: Normal sinus rhythm with sinus arrhythmia Biatrial enlargement Abnormal ECG Compared to ECG 06/06/2020 13:13:06 Sinus tachycardia no longer present Electronically Signed On 11-27-23 13:45:40 CDT by Uzair Vela
[~2023-11-28] MED LIST: ASPIRIN 325 MG TAB ONE; ATROPINE SULF 1 MG/10 ML SYR IV ONE; CLOPIDOGREL 75 MG TABLET ONE; FENTANYL CITR 100 MCG/2 ML ONE; FLUMAZENIL 0.1 MG/ML (5 mL VIAL) IV ONE; HEPA 1000U/500MLS 2,000 UNIT/1,000 ML BAG IV ONE; HEPARIN 10,000 UNIT/10 ML VIAL IV ONE; HEPARIN 5000 UNIT/ML 1 ML VIAL ONE; LIDOCAINE 1% 20 ML MDV ONE; MIDAZOLAM HCL 2 MG/2 ML INJ ONE; NA CHLORIDE 0.9% 500 ML ONE; NALOXONE 0.4 MG/ML VIAL ONE; NITROGLYCERIN/D5W 50 MG/250 ML BTL IV ONE; TICAGRELOR 90 MG TABLET PO ONE; VERAPAMIL HCL 10 MG/4 ML VIAL IV ONE
[2023-11-28 15:19] VITALS: O2SAT 100
[2023-11-28 17:01] VITALS: BP 169/79
--- NOTE | 2023-11-28 19:07 | OP ---
Date of Procedure: 11/28/2023 Surgeon: HERON OKEEFE Procedures Performed: 1.Selective coronary angiogram. 2.Left heart catheterization. Indication: Chest pain with abnormal stress test. Access: Right radial artery 6-Pashto closed with TR band. Complications: None. Bleeding: Less than 50 mL. Anesthesia: Total sedation time was less than 30 minutes, used fentanyl and Versed. Description Of Procedure: After risks, benefits, and alternatives were explained, patient agreed to the procedure and signed informed consent. The patient was brought into the cardiac catheterization laboratory, prepped and draped in the usual sterile fashion. Then, I accessed right radial artery us ing pediatric micropuncture kit, placed 6-Pashto Slender sheath and took 5-Pashto [place] 4.0 catheter into the aortic root over a J-wire across the aortic valve, measured the LVEDP. Pullback did not rec ord any gradient. Then I engaged the left main, took standard views and in the RCA, took standard vi ews. Then, I removed the catheter and the sheath, placed TR band with good hemostasis. Findings: 1.Left main; large and normal. 2.LAD; large, normal proximal segment, normal diagonal branches. In the mid segment, there is focal 30% to 40% stenosis, but the artery is very big with KEM-3 flow. 3.Left circumflex; large vessel and normal. 4.RCA; large, dominant, and normal. 5.LVEDP normal at 10 mmHg. Conclusion: Mild nonobstructive coronary artery disease. Recommendation: Medical management. /LOLA Voice ID: [id number] Report ID: [id number]
== END ==
LOC: CCL 10:30
PROVIDERS: ATTEND Internal Medicine
DX: I25.10 Atherosclerotic heart disease of native coronary artery without angina pectoris (principal); I65.23 Occlusion and stenosis of bilateral carotid arteries; I70.213 Atherosclerosis of native arteries of extremities with intermittent claudication, bilateral legs; I10 Essential (primary) hypertension; I47.10 Supraventricular tachycardia, unspecified; E78.2 Mixed hyperlipidemia; J44.9 Chronic obstructive pulmonary disease, unspecified; I15.9 Secondary hypertension, unspecified; Z79.02 Long term (current) use of antithrombotics/antiplatelets; Z79.82 Long term (current) use of aspirin; Z79.899 Other long term (current) drug therapy; Z86.73 Personal history of transient ischemic attack (TIA), and cerebral infarction without residual deficits; Z87.891 Personal history of nicotine dependence; Z82.49 Family history of ischemic heart disease and other diseases of the circulatory system
CPT/HCPCS: 93005; 85025; 80048; 36415; 85610; 85730; 71046; 93458; 76937; C1893; Q9966; J1644; J2001; J2250; J3010; J7040; 99152; J0461; J2310